=== PATIENT | male | born 1950 | race Caucasian/White ===

== ENCOUNTER → 2016-11-23 | Outpatient (CLI) | payer MEDICARE, OTHER ==
[~2016-11-23] MED LIST: HYDROCORTISONE SUCCINATE 100 MG/2 ML VIAL IV ONE; SODIUM CHLORIDE 0.9% 250 ML in EMPTY BAG 1 BAG IV PRN; SODIUM CHLORIDE 0.9% 500 ML in EMPTY BAG 1 BAG IV PRN; diphenhydrAMINE 50 MG/ML 1 ML VIAL IVP ONE
[2016-11-23 12:21] VITALS: TEMP 97.8
[2016-11-23 13:44] VITALS: BP 112/75; PULSE 58; RESP 18
== END | disposition home or self-care (01) ==
LOC: PROCWHC3 11:52
PROVIDERS: ATTEND Internal Medicine Gastroenterology
DX: K51.90 Ulcerative colitis, unspecified, without complications (principal)
CPT/HCPCS: 96361; 96413; 96415; J1200; J1720; J1745; 96375

== ENCOUNTER → 2017-01-18 | Outpatient (CLI) | payer MEDICARE, OTHER ==
[2017-01-18 12:34] VITALS: TEMP 98.1
[2017-01-18 13:55] VITALS: RESP 20
[2017-01-18 14:13] VITALS: BP 124/81; PULSE 62
== END | disposition home or self-care (01) ==
LOC: PROCWHC3 11:58
PROVIDERS: ATTEND Internal Medicine Gastroenterology
DX: K51.90 Ulcerative colitis, unspecified, without complications (principal)
CPT/HCPCS: 96361; 96375; 96413; 96415; J1200; J1720; J1745

== ENCOUNTER → 2017-03-15 | Outpatient (CLI) | payer MEDICARE, OTHER ==
[~2017-03-15] MED LIST changes: +ACETAMINOPHEN TAB 500 MG TAB PO ONE; +LORATADINE 10 MG TAB PO ONE
[2017-03-15 12:33] VITALS: TEMP 97.7
[2017-03-15 14:08] VITALS: BP 121/76; PULSE 62; RESP 20
== END | disposition home or self-care (01) ==
LOC: PROCWHC3 12:02
PROVIDERS: ATTEND Internal Medicine Gastroenterology
DX: K51.318 Ulcerative (chronic) rectosigmoiditis with other complication (principal)
CPT/HCPCS: 96375; 96413; 96415; J1200; J1720; J1745

== ENCOUNTER → 2017-05-10 | Outpatient (CLI) | payer MEDICARE, OTHER ==
[~2017-05-10] MED LIST changes: +ACETAMINOPHEN TAB 500 MG TAB PO NR; -ACETAMINOPHEN TAB 500 MG TAB PO ONE; +HYDROCORTISONE SUCCINATE 100 MG/2 ML VIAL IV NR; -HYDROCORTISONE SUCCINATE 100 MG/2 ML VIAL IV ONE; +LORATADINE 10 MG TAB PO NR; -LORATADINE 10 MG TAB PO ONE; +diphenhydrAMINE 50 MG/ML 1 ML VIAL IVP NR; -diphenhydrAMINE 50 MG/ML 1 ML VIAL IVP ONE
[2017-05-10 12:08] VITALS: TEMP 98.2
[2017-05-10 12:42] LABS: Basophils % (A) 1 %; CH 30.4; CHCM 33.6; Eosinophils # (A) 0.2 k/uL (0-0.7); Eosinophils % (A) 3 %; HCT 45.1 % (39.0-53.0); HDW 2.59; HGB 15.5 gm/dL (13.0-17.5); Luc # (Auto) 0.13; Luc % (Auto) 2; Lymphocytes # (A) 1.5 k/uL (1.0-4.8); Lymphocytes % (A) 26 %; MCH 31.2 pg (25.0-35.0); MCHC 34.3 g/dL (31.0-37.0); MCV 90.9 fL (80.0-100.0); Mean Platelet Volume 7.2; Monocytes # (A) 0.4 k/uL (0-1.0); Monocytes % (A) 7 %; Neutrophils # (A) 3.4 k/uL (1.3-7.7); Neutrophils % (A) 61 %; RBC 4.96 m/uL (4.30-5.90); RDW 12.2 % (11.5-15.5); WBC 5.6 k/uL (3.8-10.6); WBC (Perox) 5.79
[2017-05-10 12:51] LABS: ALT 44 U/L (21-72); AST 37 U/L (17-59); Alkaline Phosphatase 42 U/L (38-126); Anion Gap 10 mmol/L; Blood Urea Nitrogen 13 mg/dL (9-20); Calcium 8.8 mg/dL (8.4-10.2); Carbon Dioxide 25 mmol/L (22-30); Chloride 106 mmol/L (98-107); Glucose 130 mg/dL (74-99); Non-African American GFR(MDRD) >60 (>60 ml/min/1.73 sqM); Potassium 4.6 mmol/L (3.5-5.1); Sodium 141 mmol/L (137-145); Total Bilirubin 0.8 mg/dL (0.2-1.3); Total Protein 7.8 g/dL (6.3-8.2)
[2017-05-10 12:55] VITALS: RESP 18
[2017-05-10 13:39] VITALS: BP 119/63; PULSE 62
== END ==
LOC: PROCWHC3 11:58
PROVIDERS: ATTEND Physician Assistant
DX: Z51.11 Encounter for antineoplastic chemotherapy (principal); K51.318 Ulcerative (chronic) rectosigmoiditis with other complication
CPT/HCPCS: 80053; 85025; 96375; 96413; 96415; 36415; J1720; J1745

== ENCOUNTER → 2017-06-19 | Outpatient (CLI) | payer MEDICARE, OTHER ==
[2017-06-19 13:48] LABS: Cholesterol 179 mg/dL (<200); Glucose 99 mg/dL (74-99); HDL Cholesterol 48 mg/dL (40-60)
[2017-06-19 14:35] LABS: Prostate Specific Antigen 0.48 ng/mL (0.00-4.00)
[2017-06-19 14:36] LABS: Hepatitis C Virus IgG Ab Negative (Negative); Hepatitis C Virus IgG Index 0.08
== END | disposition home or self-care (01) ==
LOC: LABWHC1 12:55
PROVIDERS: ATTEND Internal Medicine
DX: Z00.01 Encounter for general adult medical examination with abnormal findings (principal); E55.9 Vitamin D deficiency, unspecified; Z12.5 Encounter for screening for malignant neoplasm of prostate
CPT/HCPCS: 36415; 80061; 82306; 82947; 84153; 86803

== ENCOUNTER → 2017-06-28 | Outpatient (CLI) | payer MEDICARE, OTHER ==
--- NOTE | 2017-06-28 07:29 | US ---
EXAMINATION TYPE: US duplex aorta DATE OF EXAM: 06/28/2017 COMPARISON: CT 2012 CLINICAL HISTORY: Z13.6 screening for cardiovascular disorders. EXAM MEASUREMENTS: Abdominal Aorta: Proximal: 2.4 x 2.4 cm Mid: 1.9 x 2.3 cm Distal: 1.8 x 1.7 cm Bifurcation: right 1.1 x 1.2 cm left 1.0 x 0.9 cm normal caliber aorta IMPRESSION: No for sonographic evidence of abdominal aortic aneurysm.
== END | disposition home or self-care (01) ==
LOC: RADUSWWP 06:56
PROVIDERS: ATTEND Internal Medicine
DX: Z13.6 Encounter for screening for cardiovascular disorders (principal)
CPT/HCPCS: 93979

== ENCOUNTER → 2017-07-05 | Outpatient (CLI) | payer MEDICARE, OTHER ==
[~2017-07-05] MED LIST changes: -ACETAMINOPHEN TAB 500 MG TAB PO NR; +ACETAMINOPHEN TAB 500 MG TAB PO ONE; -HYDROCORTISONE SUCCINATE 100 MG/2 ML VIAL IV NR; +HYDROCORTISONE SUCCINATE 100 MG/2 ML VIAL IV ONE; +INFLIXIMAB-DYYB 400 MG in SODIUM CHLORIDE 0.9% 250 ML IV ONE; -LORATADINE 10 MG TAB PO NR; +LORATADINE 10 MG TAB PO ONE; -SODIUM CHLORIDE 0.9% 250 ML in EMPTY BAG 1 BAG IV PRN; -diphenhydrAMINE 50 MG/ML 1 ML VIAL IVP NR; +diphenhydrAMINE 50 MG/ML 1 ML VIAL IVP ONE
[2017-07-05 12:23] VITALS: TEMP 97.5
[2017-07-05 13:38] VITALS: RESP 18
[2017-07-05 14:07] VITALS: BP 119/71; PULSE 69
== END ==
LOC: PROCWHC3 12:01
PROVIDERS: ATTEND Physician Assistant
DX: Z51.11 Encounter for antineoplastic chemotherapy (principal); K51.318 Ulcerative (chronic) rectosigmoiditis with other complication
CPT/HCPCS: 96375; 96413; 96415; J1200; J1720; Q5102

== ENCOUNTER 2017-07-07 07:57 | Day surgery (SDC) | payer MEDICARE, OTHER ==
[2017-07-06 08:48] VITALS: BMI 27.3
[~2017-07-07 07:57] MED LIST changes: -ACETAMINOPHEN TAB 500 MG TAB PO ONE; -HYDROCORTISONE SUCCINATE 100 MG/2 ML VIAL IV ONE; -INFLIXIMAB-DYYB 400 MG in SODIUM CHLORIDE 0.9% 250 ML IV ONE; +LACTATED RINGERS 1,000 ML IV SCH; -LORATADINE 10 MG TAB PO ONE; -SODIUM CHLORIDE 0.9% 500 ML in EMPTY BAG 1 BAG IV PRN; -diphenhydrAMINE 50 MG/ML 1 ML VIAL IVP ONE
[2017-07-07 08:26] VITALS: RESP 16; TEMP 97.6
[2017-07-07] MEDS ORDERED: LIDOCAINE 1% 20 ML VIAL (10MG/ML) FOR IV START INTRADERMA ONE (08:34)
[2017-07-07] MEDS ORDERED: PROPOFOL 10 MG/ML 20 ML VIAL IV ONE (09:09)
--- NOTE | 2017-07-07 09:33 | P.PCN ---
Date of Procedure: 07/07/17 Preoperative Diagnosis: Postoperative Diagnosis: Procedure(s) Performed: Brief history: Patient is a pleasant 67-year-old white male scheduled for an elective upper endoscopy as well as colonoscopy as a part of evaluation of epigastric pain for the last 2 months duration and long-standing history of ulcerative colitis. Procedure performed: Esophagogastroduodenoscopy and biopsy Colonoscopy with biopsy and snare polypectomy Preoperative diagnosis: Epigastric pain of 2 months duration Long-standing history of ulcerative colitis Anesthesia: MAC Procedure: After informed consent was obtained from the patient was brought into the endoscopy unit and IV sedation was administered by anesthesia under continuous monitoring. Initially upper endoscopy was done. The Olympus GF 160 video endoscope was inserted inserted into the mouth and esophagus intubated without any difficulty and was gradually advanced into the stomach and duodenum and carefully examined. The bulb and second part of the duodenum appeared normal. The scope was then withdrawn into the stomach adequately insufflated with air and upon careful examination the antrum and mild gastritis and biopsies were done from this area. The body, cardia and fundus appeared normal. The scope was then withdrawn into the esophagus. The GE junction was located at 40 cm to the incisors. It appeared regular with no erythema erosions or ulcerations. biopsies were done from the distal esophagus also. Rest of the esophagus appeared normal. Patient tolerated the procedure well. At this time the patient continued to remain sedation. Initial digital rectal examination was normal. Olympus CF 160 video colonoscope was then inserted into the rectum and gradually advanced to the cecum without any difficulty. Careful examination was performed as the scope was gradually being withdrawn. The prep was excellent. The cecum, ascending coloappeared normal. In the transverse colon there was a 1 cm polyp removed by snare polypectomy. The rest of the transverse colon, descending colon, sigmoid colon and rectum appeared normal. scattered sigmoid diverticula seen. Random biopsies were done from cecum to rectum at every 10 cm into well. Retroflexion was performed in the rectum and no lesions were noted. Patient tolerated the procedure well. Impression: 1. Upper endoscopy revealed mild antral gastritis but no evidence of esophagitis or peptic ulcer disease. 2. Colonoscopy revealed 1 cm transverse colon polyp status post snare polypectomy and sigmoid diverticulosis. No active colitis Recommendations: Findings of this examination were discussed with the patient as well as his family. He was advised to follow with the biopsy results. If the biopsy does not show any evidence of dysplasia he can have a repeat colonoscopy in 2 years. Implants: Indications for Procedure: Operative Findings: Description of Procedure:
[2017-07-07 10:00] VITALS: BP 123/80; PULSE 53
== END 2017-07-07 10:50 | disposition home or self-care (01) ==
LOC: ORWHC2ENDO 07:57
PROVIDERS: ATTEND Internal Medicine Gastroenterology
DX: K51.90 Ulcerative colitis, unspecified, without complications (principal); K57.30 Diverticulosis of large intestine without perforation or abscess without bleeding; K29.50 Unspecified chronic gastritis without bleeding; D12.3 Benign neoplasm of transverse colon; R10.13 Epigastric pain; J45.909 Unspecified asthma, uncomplicated; K21.9 Gastro-esophageal reflux disease without esophagitis; F39 Unspecified mood [affective] disorder; Z88.1 Allergy status to other antibiotic agents; Z88.0 Allergy status to penicillin; Z88.7 Allergy status to serum and vaccine; Z79.899 Other long term (current) drug therapy; Z79.1 Long term (current) use of non-steroidal anti-inflammatories (NSAID); Z79.51 Long term (current) use of inhaled steroids
CPT/HCPCS: 88305; 88342; 45380; 45385; 43239; J2704

== ENCOUNTER → 2017-10-25 | Outpatient (CLI) | payer MEDICARE, OTHER ==
[~2017-10-25] MED LIST changes: +ACETAMINOPHEN TAB 500 MG TAB PO ONE; +HYDROCORTISONE SUCCINATE 100 MG/2 ML VIAL IV ONE; +INFLIXIMAB-DYYB 400 MG in SODIUM CHLORIDE 0.9% 250 ML IV ONE; -LACTATED RINGERS 1,000 ML IV SCH; +LORATADINE 10 MG TAB PO ONE; +SODIUM CHLORIDE 0.9% 500 ML in EMPTY BAG 1 BAG IV PRN; +diphenhydrAMINE 50 MG/ML 1 ML VIAL IVP ONE
[2017-10-25 12:44] VITALS: TEMP 98.6
[2017-10-25 13:03] LABS: Basophils # (A) 0.1 k/uL (0-0.2); Basophils % (A) 1 %; CH 30.9; CHCM 33.9; Eosinophils # (A) 0.2 k/uL (0-0.7); Eosinophils % (A) 5 %; HCT 40.3 % (39.0-53.0); HDW 2.61; HGB 13.1 gm/dL (13.0-17.5); Luc # (Auto) 0.17; Luc % (Auto) 3; Lymphocytes # (A) 1.5 k/uL (1.0-4.8); Lymphocytes % (A) 28 %; MCH 29.7 pg (25.0-35.0); MCHC 32.5 g/dL (31.0-37.0); MCV 91.4 fL (80.0-100.0); Monocytes # (A) 0.5 k/uL (0-1.0); Monocytes % (A) 10 %; Neutrophils # (A) 2.8 k/uL (1.3-7.7); Neutrophils % (A) 54 %; RBC 4.41 m/uL (4.30-5.90); RDW 12.6 % (11.5-15.5); WBC 5.3 k/uL (3.8-10.6); WBC (Perox) 5.26
[2017-10-25 13:15] LABS: Anion Gap 9 mmol/L; Calcium 9.3 mg/dL (8.4-10.2); Carbon Dioxide 27 mmol/L (22-30); Chloride 105 mmol/L (98-107); Glucose 92 mg/dL (74-99); Non-African American GFR(MDRD) >60 (>60 ml/min/1.73 sqM); Sodium 141 mmol/L (137-145); Total Bilirubin 0.6 mg/dL (0.2-1.3); Total Protein 7.8 g/dL (6.3-8.2)
[2017-10-25 13:17] LABS: ALT 53 U/L (21-72); AST 40 U/L (17-59); Alkaline Phosphatase 33 U/L (38-126); Blood Urea Nitrogen 19 mg/dL (9-20); Potassium 5.1 mmol/L (3.5-5.1)
[2017-10-25 14:19] VITALS: BP 113/70; PULSE 71; RESP 18
== END | disposition home or self-care (01) ==
LOC: PROCWHC3 12:04
PROVIDERS: ATTEND Physician Assistant
DX: K51.318 Ulcerative (chronic) rectosigmoiditis with other complication (principal)
CPT/HCPCS: 80053; 85025; 96375; 96413; 96415; 36415; J1200; J1720; Q5102

== ENCOUNTER → 2017-12-20 | Outpatient (CLI) | payer MEDICARE, OTHER ==
[~2017-12-20] MED LIST changes: +HYDROCORTISONE SUCCINATE 100 MG/2 ML VIAL IV NR; -HYDROCORTISONE SUCCINATE 100 MG/2 ML VIAL IV ONE; +diphenhydrAMINE 50 MG/ML 1 ML VIAL IVP NR; -diphenhydrAMINE 50 MG/ML 1 ML VIAL IVP ONE
[2017-12-20 12:28] VITALS: TEMP 98.6
[2017-12-20 13:42] VITALS: RESP 16
[2017-12-20 14:08] VITALS: BP 140/97; PULSE 87
== END | disposition home or self-care (01) ==
LOC: PROCWHC3 12:03
PROVIDERS: ATTEND Physician Assistant
DX: K51.318 Ulcerative (chronic) rectosigmoiditis with other complication (principal)
CPT/HCPCS: 96375; 96413; 96415; J1200; J1720; Q5102

== ENCOUNTER → 2018-02-14 | Outpatient (CLI) | payer MEDICARE, OTHER ==
[~2018-02-14] MED LIST changes: -ACETAMINOPHEN TAB 500 MG TAB PO ONE; +INFLIXIMAB-DYYB 400 MG in SODIUM CHLORIDE 0.9% 250 ML IV NR; -INFLIXIMAB-DYYB 400 MG in SODIUM CHLORIDE 0.9% 250 ML IV ONE; -LORATADINE 10 MG TAB PO ONE; +OMALIZUMAB 150 MG VIAL SQ ONE
[2018-02-14 12:23] VITALS: RESP 16; TEMP 98
[2018-02-14 14:25] VITALS: BP 118/78; PULSE 57
== END | disposition home or self-care (01) ==
LOC: PROCWHC3 02-13 13:34
PROVIDERS: ATTEND Physician Assistant
DX: K51.318 Ulcerative (chronic) rectosigmoiditis with other complication (principal)
CPT/HCPCS: 96375; 96413; 96415; J1200; J1720; Q5103

== ENCOUNTER → 2018-04-11 | Outpatient (CLI) | payer MEDICARE, OTHER ==
[~2018-04-11] MED LIST changes: +ACETAMINOPHEN TAB 500 MG TAB PO NR; +LORATADINE 10 MG TAB PO NR; -OMALIZUMAB 150 MG VIAL SQ ONE
[2018-04-11 12:27] VITALS: RESP 16; TEMP 98.5
[2018-04-11 14:02] VITALS: BP 104/65; PULSE 54
== END ==
LOC: PROCWHC3 12:01
PROVIDERS: ATTEND Physician Assistant
DX: K51.318 Ulcerative (chronic) rectosigmoiditis with other complication (principal)
CPT/HCPCS: 96375; 96413; 96415; J1200; J1720; Q5103

== ENCOUNTER → 2018-06-06 | Outpatient (CLI) | payer MEDICARE, OTHER ==
[~2018-06-06] MED LIST changes: -ACETAMINOPHEN TAB 500 MG TAB PO NR; -HYDROCORTISONE SUCCINATE 100 MG/2 ML VIAL IV NR; +HYDROCORTISONE SUCCINATE 100 MG/2 ML VIAL IVP ONE; -LORATADINE 10 MG TAB PO NR; -diphenhydrAMINE 50 MG/ML 1 ML VIAL IVP NR; +diphenhydrAMINE 50 MG/ML 1 ML VIAL IVP ONE
[2018-06-06 12:18] VITALS: RESP 15; TEMP 98.1
[2018-06-06 13:56] VITALS: BP 125/81; PULSE 77
== END | disposition home or self-care (01) ==
LOC: PROCWHC3 11:58
PROVIDERS: ATTEND Physician Assistant
DX: K51.318 Ulcerative (chronic) rectosigmoiditis with other complication (principal)
CPT/HCPCS: 96375; 96413; 96415; J1200; J1720; Q5103

== ENCOUNTER → 2018-08-01 | Outpatient (CLI) | payer MEDICARE, OTHER ==
[~2018-08-01] MED LIST changes: +HYDROCORTISONE SUCCINATE 100 MG/2 ML VIAL IV ONE; -HYDROCORTISONE SUCCINATE 100 MG/2 ML VIAL IVP ONE
[2018-08-01 13:05] VITALS: TEMP 98.3
[2018-08-01 13:59] LABS: HCT 42.4 % (39.0-53.0); HGB 14.5 gm/dL (13.0-17.5); MCH 31.2 pg (25.0-35.0); MCHC 34.3 g/dL (31.0-37.0); MCV 90.9 fL (80.0-100.0); Mean Platelet Volume 7.6; Platelet Count 251 k/uL (150-450); RBC 4.66 m/uL (4.30-5.90); RDW 12.5 % (11.5-15.5); WBC 6.4 k/uL (3.8-10.6)
[2018-08-01 14:15] LABS: ALT 41 U/L (21-72); AST 37 U/L (17-59); Albumin 4.4 g/dL (3.5-5.0); Alkaline Phosphatase 31 U/L (38-126); Anion Gap 10 mmol/L; Blood Urea Nitrogen 19 mg/dL (9-20); Calcium 9.2 mg/dL (8.4-10.2); Carbon Dioxide 26 mmol/L (22-30); Chloride 107 mmol/L (98-107); Glucose 115 mg/dL (74-99); Sodium 143 mmol/L (137-145); Total Bilirubin 0.7 mg/dL (0.2-1.3); Total Protein 7.7 g/dL (6.3-8.2)
[2018-08-01 14:19] LABS: Potassium 4.9 mmol/L (3.5-5.1)
[2018-08-01 14:25] VITALS: RESP 15
[2018-08-01 14:56] VITALS: BP 117/80; PULSE 56
== END | disposition home or self-care (01) ==
LOC: PROCWHC3 12:37
PROVIDERS: ATTEND Physician Assistant
DX: K51.318 Ulcerative (chronic) rectosigmoiditis with other complication (principal)
CPT/HCPCS: 80053; 85027; 96375; 96413; 96415; 36415; J1200; J1720; Q5103

== ENCOUNTER → 2018-09-26 | Outpatient (CLI) | payer MEDICARE, OTHER ==
[~2018-09-26] MED LIST changes: -HYDROCORTISONE SUCCINATE 100 MG/2 ML VIAL IV ONE; +HYDROCORTISONE SUCCINATE 100 MG/2 ML VIAL IVP ONE; +SODIUM CHLORIDE 0.9% 500 ML 500 ML in EMPTY BAG 1 BAG IV PRN; -SODIUM CHLORIDE 0.9% 500 ML in EMPTY BAG 1 BAG IV PRN
[2018-09-26 13:42] VITALS: RESP 16; TEMP 98.3
[2018-09-26 14:35] VITALS: BP 130/77; PULSE 59
== END | disposition home or self-care (01) ==
LOC: PROCWHC3 12:42
PROVIDERS: ATTEND Physician Assistant
DX: K51.318 Ulcerative (chronic) rectosigmoiditis with other complication (principal)
CPT/HCPCS: 96372; 96413; 96415; J1200; J1720; J2357; Q5103

== ENCOUNTER → 2018-11-21 | Outpatient (CLI) | payer MEDICARE, OTHER ==
[~2018-11-21] MED LIST changes: +HYDROCORTISONE SUCCINATE 100 MG/2 ML VIAL IV ONE; -HYDROCORTISONE SUCCINATE 100 MG/2 ML VIAL IVP ONE; +diphenhydrAMINE 50 MG/ML 1 ML VIAL IVP NR; -diphenhydrAMINE 50 MG/ML 1 ML VIAL IVP ONE
[2018-11-21 11:04] VITALS: RESP 16; TEMP 97.9
[2018-11-21 13:09] VITALS: BP 121/75; PULSE 59
== END | disposition home or self-care (01) ==
LOC: PROCWHC3 10:31
PROVIDERS: ATTEND Internal Medicine Gastroenterology
DX: K51.90 Ulcerative colitis, unspecified, without complications (principal)
CPT/HCPCS: 96375; 96413; 96415; J1200; J1720; Q5103

== ENCOUNTER → 2018-12-17 | Outpatient (CLI) | payer MEDICARE, OTHER ==
--- NOTE | 2018-12-17 12:18 | XR ---
EXAMINATION TYPE: XR cervical spine w flex/ext DATE OF EXAM: 12/17/2018 COMPARISON: None HISTORY: Spondylolisthesis TECHNIQUE: 5 view cervical spine supplemented with flexion and extension views. FINDINGS: Prevertebral space is normal. Disc space narrowing is present C3-4, C5-6, C6-7. Anterior ve rtebral body spurring is present C5-C6. Some posterior vertebral body spurring may be present at C5. There is a minimal retrolisthesis C3 posterior on C4 estimated at approximately 0.3 mm. This appears to be preserved with flexion and extension views. Posterior spinal lamellar line appears intact. There is foraminal narrowing on the left and C5-6 C6-7. Some foraminal stenosis is present at C3-C4 o n the right. Tip of the odontoid is limited due to overlying maxilla. IMPRESSION: 1. Stable grade 1 spondylolisthesis of C3 3 posterior on C4. This maintains position in both flexion and extension as well as neutral position. 2. Degenerative disc changes discussed above. 3. Mild foraminal narrowing discussed above
== END | disposition home or self-care (01) ==
LOC: RADXRMAIN 11:22
PROVIDERS: ATTEND Anesthesiology Pain Medicine
DX: M48.02 Spinal stenosis, cervical region (principal); M99.71 Connective tissue and disc stenosis of intervertebral foramina of cervical region; M43.12 Spondylolisthesis, cervical region; M47.812 Spondylosis without myelopathy or radiculopathy, cervical region
CPT/HCPCS: 72052

== ENCOUNTER → 2019-01-11 | Outpatient (CLI) | payer MEDICARE, OTHER ==
--- NOTE | 2019-01-11 14:01 | MR ---
EXAMINATION TYPE: MR jennifer/lspine wo con DATE OF EXAM: 01/11/2019 COMPARISON: None available HISTORY: Cervical and lumbar back pain, spondylosis TECHNIQUE: Multiplanar, multisequence imaging of the lumbar spine is performed without IV contrast. FINDINGS: Cervical spine: There is mild retrolisthesis of C4 on C5. Vertebral body heights are maintained of th e cervical spine. C2-C3: There is a small broad-based disc bulge without spinal canal stenosis nor neural foraminal ady rowing. C3-C4: There is a broad-based disc bulge, uncovertebral hypertrophy and facet arthropathy creating se harshad right and moderate left neural foraminal narrowing as well as mild spinal canal stenosis. C4-C5: There is a small central posterior disc osteophyte complex, uncovertebral hypertrophy and face t arthropathy creating mild right and moderate left neural foraminal narrowing. There is some narrowi ng of the ventral subarachnoid space without spinal canal stenosis. C5-C6: There is a left eccentric large broad-based disc bulge creating severe left neural foraminal n arrowing and mild spinal canal stenosis with mild right neuroforaminal narrowing. C6-C7: There is uncovertebral hypertrophy and facet arthropathy creating moderate to severe left neur al foraminal narrowing and mild to moderate right neural foraminal narrowing. There is also a central disc herniation at this level minimally narrowing the ventral subarachnoid space creating minimal sp inal canal stenosis. C7-T1: No significant disc disease, spinal canal stenosis nor neural foraminal narrowing. Lumbar spine: The vertebral bodies maintain normal vertebral body height and alignment. Bone marrow s ignal is within normal limits. Multilevel disc desiccation is seen. Conus medullaris is within normal limits. L1-L2: Mild disc desiccation without spinal canal stenosis or neuroforaminal narrowing. L2-L3: There is a broad-based disc bulge resulting in minimal bilateral neural foraminal narrowing. N o spinal canal stenosis. L3-L4: There is a broad-based disc bulge and facet arthropathy resulting in mild bilateral neural for aminal narrowing without spinal canal stenosis. L4-L5: There is a large broad-based disc bulge creating moderate bilateral neural foraminal narrowing and mild spinal canal stenosis in combination with facet arthropathy and ligamentum flavum buckling. L5-S1: No significant disc disease, spinal canal stenosis nor neural foraminal narrowing. IMPRESSION: 1. Mild retrolisthesis of C4 on C5. Remainder of the vertebral body alignment of the cervical and lum bar spine are maintained. No vertebral body height loss. 2. Small central disc herniation at C6-C7 superimposed upon a broad-based disc bulge in combination w ith degenerative changes create moderate to severe left neural foraminal narrowing and moderate right neural foraminal narrowing with minimal spinal canal stenosis. 3. Degenerative disc disease at C3-C4 and L4-L5 creates mild spinal canal stenosis. 4. Moderate multilevel degenerative disc disease of the cervical and lumbar spine result in variable degrees of neural foraminal narrowing as described above.
== END | disposition home or self-care (01) ==
LOC: RADMRIMAIN 12:53
PROVIDERS: ATTEND Neurological Surgery
DX: M48.02 Spinal stenosis, cervical region (principal); M48.061 Spinal stenosis, lumbar region without neurogenic claudication; M43.12 Spondylolisthesis, cervical region; M50.223 Other cervical disc displacement at C6-C7 level; M50.31 Other cervical disc degeneration, high cervical region; M51.36 Other intervertebral disc degeneration, lumbar region; M47.812 Spondylosis without myelopathy or radiculopathy, cervical region
CPT/HCPCS: 72141; 72148

== ENCOUNTER → 2019-01-16 | Outpatient (CLI) | payer MEDICARE, OTHER ==
[~2019-01-16] MED LIST changes: -diphenhydrAMINE 50 MG/ML 1 ML VIAL IVP NR; +diphenhydrAMINE 50 MG/ML 1 ML VIAL IVP ONE
[2019-01-16 09:54] VITALS: RESP 16; TEMP 97.9
[2019-01-16 11:12] LABS: Basophils # (A) 0.1 k/uL (0-0.2); Basophils % (A) 1 %; Eosinophils # (A) 0.2 k/uL (0-0.7); Eosinophils % (A) 5 %; HGB 14.2 gm/dL (13.0-17.5); Lymphocytes # (A) 1.4 k/uL (1.0-4.8); Lymphocytes % (A) 31 %; MCHC 32.3 g/dL (31.0-37.0); MCV 92.8 fL (80.0-100.0); Mean Platelet Volume 7.9; Monocytes # (A) 0.4 k/uL (0-1.0); Monocytes % (A) 8 %; Neutrophils # (A) 2.3 k/uL (1.3-7.7); Neutrophils % (A) 51 %; Platelet Count 206 k/uL (150-450); RBC 4.74 m/uL (4.30-5.90); RDW 12.6 % (11.5-15.5); WBC 4.5 k/uL (3.8-10.6)
[2019-01-16 11:35] VITALS: BP 113/77; PULSE 71
[2019-01-16 12:01] LABS: ALT 39 U/L (21-72); AST 41 U/L (17-59); Albumin 4.3 g/dL (3.5-5.0); Alkaline Phosphatase 38 U/L (38-126); Anion Gap 11 mmol/L; Blood Urea Nitrogen 25 mg/dL (9-20); Calcium 9.2 mg/dL (8.4-10.2); Carbon Dioxide 20 mmol/L (22-30); Chloride 111 mmol/L (98-107); Glucose 115 mg/dL (74-99); Sodium 142 mmol/L (137-145); Total Bilirubin 0.7 mg/dL (0.2-1.3); Total Protein 7.4 g/dL (6.3-8.2)
[2019-01-16 12:17] LABS: Potassium 5.1 mmol/L (3.5-5.1)
== END | disposition home or self-care (01) ==
LOC: PROCWHC3 09:29
PROVIDERS: ATTEND Internal Medicine Gastroenterology
DX: K51.90 Ulcerative colitis, unspecified, without complications (principal)
CPT/HCPCS: 80053; 85025; 96375; 96413; 96415; 36415; J1200; J1720; Q5103

== ENCOUNTER → 2019-03-13 | Outpatient (CLI) | payer MEDICARE, OTHER ==
[~2019-03-13] MED LIST changes: +HYDROCORTISONE SUCCINATE 100 MG/2 ML VIAL IV NR; -HYDROCORTISONE SUCCINATE 100 MG/2 ML VIAL IV ONE; +diphenhydrAMINE 50 MG/ML 1 ML VIAL IVP NR; -diphenhydrAMINE 50 MG/ML 1 ML VIAL IVP ONE
[2019-03-13 10:49] VITALS: RESP 16; TEMP 98.1
[2019-03-13 11:29] VITALS: PULSE 69
[2019-03-13 12:20] VITALS: BP 133/83
== END | disposition home or self-care (01) ==
LOC: PROCWHC3 10:23
PROVIDERS: ATTEND Physician Assistant
DX: K51.90 Ulcerative colitis, unspecified, without complications (principal)
CPT/HCPCS: 96375; 96413; 96415; J1200; J1720; Q5103

== ENCOUNTER → 2019-05-08 | Outpatient (CLI) | payer MEDICARE, OTHER ==
[~2019-05-08] MED LIST changes: -HYDROCORTISONE SUCCINATE 100 MG/2 ML VIAL IV NR; +HYDROCORTISONE SUCCINATE 100 MG/2 ML VIAL IV ONE
[2019-05-08 11:12] VITALS: RESP 16; TEMP 97.8
[2019-05-08 12:39] VITALS: BP 118/74; PULSE 57
== END | disposition home or self-care (01) ==
LOC: PROCWHC3 10:45
PROVIDERS: ATTEND Physician Assistant
DX: K51.90 Ulcerative colitis, unspecified, without complications (principal)
CPT/HCPCS: 96375; 96413; 96415; J1200; J1720; Q5103

== ENCOUNTER → 2019-07-23 | Outpatient (CLI) | payer MEDICARE ==
[~2019-07-23] MED LIST changes: -HYDROCORTISONE SUCCINATE 100 MG/2 ML VIAL IV ONE; +HYDROCORTISONE SUCCINATE 100 MG/2 ML VIAL IV STA; -diphenhydrAMINE 50 MG/ML 1 ML VIAL IVP NR; +diphenhydrAMINE 50 MG/ML 1 ML VIAL IVP ONE
[2019-07-23 12:05] LABS: ALT 31 U/L (21-72); AST 30 U/L (17-59); African American GFR (CKD) >90 (>60 ml/min/1.73 sqM); Albumin 4.5 g/dL (3.5-5.0); Alkaline Phosphatase 41 U/L (38-126); Anion Gap 10 mmol/L; Blood Urea Nitrogen 18 mg/dL (9-20); Calcium 9.6 mg/dL (8.4-10.2); Carbon Dioxide 25 mmol/L (22-30); Chloride 108 mmol/L (98-107); Glucose 111 mg/dL (74-99); Potassium 4.5 mmol/L (3.5-5.1); Sodium 143 mmol/L (137-145); Total Bilirubin 0.4 mg/dL (0.2-1.3); Total Protein 7.9 g/dL (6.3-8.2)
[2019-07-23 12:20] VITALS: TEMP 98
[2019-07-23 12:28] LABS: Basophils # (A) 0.1 k/uL (0-0.2); Basophils % (A) 2 %; Eosinophils # (A) 0.2 k/uL (0-0.7); Eosinophils % (A) 5 %; HCT 41.2 % (39.0-53.0); Lymphocytes # (A) 1.3 k/uL (1.0-4.8); Lymphocytes % (A) 25 %; MCH 30.8 pg (25.0-35.0); MCV 90.7 fL (80.0-100.0); Mean Platelet Volume 8.4; Monocytes # (A) 0.3 k/uL (0-1.0); Monocytes % (A) 7 %; Neutrophils % (A) 59 %; Platelet Count 210 k/uL (150-450); RBC 4.55 m/uL (4.30-5.90); RDW 12.5 % (11.5-15.5); WBC 5.1 k/uL (3.8-10.6)
[2019-07-23 12:34] VITALS: RESP 16
[2019-07-23 13:03] VITALS: BP 122/76; PULSE 54
== END | disposition home or self-care (01) ==
LOC: PROCWHC3 10:54
PROVIDERS: ATTEND Physician Assistant
DX: K51.90 Ulcerative colitis, unspecified, without complications (principal)
CPT/HCPCS: 80053; 85025; 96375; 96413; 96415; J1200; J1720; Q5103

== ENCOUNTER → 2019-09-17 | Outpatient (CLI) | payer MEDICARE ==
[~2019-09-17] MED LIST changes: -HYDROCORTISONE SUCCINATE 100 MG/2 ML VIAL IV STA; +HYDROCORTISONE SUCCINATE 100 MG/2 ML VIAL IVP NR; +diphenhydrAMINE 50 MG/ML 1 ML VIAL IVP NR; -diphenhydrAMINE 50 MG/ML 1 ML VIAL IVP ONE
[2019-09-17 11:30] VITALS: RESP 16; TEMP 98.4
[2019-09-17 12:57] VITALS: BP 134/65; PULSE 56
== END | disposition home or self-care (01) ==
LOC: PROCWHC3 11:02
PROVIDERS: ATTEND Internal Medicine Gastroenterology
DX: K51.90 Ulcerative colitis, unspecified, without complications (principal)
CPT/HCPCS: 96375; 96413; 96415; J1200; J1720; Q5103

== ENCOUNTER → 2019-11-12 | Outpatient (CLI) | payer MEDICARE ==
--- NOTE | 2019-11-12 11:27 | XR ---
EXAMINATION TYPE: XR chest 2V DATE OF EXAM: 11/12/2019 COMPARISON: NONE HISTORY: Shortness of breath TECHNIQUE: Frontal and lateral views of the chest are obtained. FINDINGS: Scattered senescent parenchymal changes noted. Hyperinflation compatible with COPD. No evidence for infiltrate. No evidence for atelectasis. Heart size is stable. Mediastinal structures are stable and grossly unremarkable. No evidence for hilar prominence. Degenerative changes dorsal spine. IMPRESSION: 1. No evidence for acute pulmonary disease.
== END | disposition home or self-care (01) ==
LOC: RADXRMAIN 10:57
PROVIDERS: ATTEND Internal Medicine
DX: R07.89 Other chest pain (principal)
CPT/HCPCS: 71046

== ENCOUNTER → 2020-01-07 | Outpatient (CLI) | payer MEDICARE ==
[~2020-01-07] MED LIST changes: +HYDROCORTISONE SUCCINATE 100 MG/2 ML VIAL IV NR; -HYDROCORTISONE SUCCINATE 100 MG/2 ML VIAL IVP NR
[2020-01-07 11:48] VITALS: TEMP 98
[2020-01-07 12:47] LABS: ALT 66 U/L (4-49); AST 57 U/L (17-59); African American GFR (CKD) >90 (>60 ml/min/1.73 sqM); Albumin 4.8 g/dL (3.5-5.0); Alkaline Phosphatase 47 U/L (38-126); Anion Gap 9 mmol/L; Blood Urea Nitrogen 16 mg/dL (9-20); Calcium 8.5 mg/dL (8.4-10.2); Carbon Dioxide 26 mmol/L (22-30); Chloride 106 mmol/L (98-107); Glucose 109 mg/dL (74-99); Non-African American GFR(CKD) 88 (>60 ml/min/1.73 sqM); Sodium 141 mmol/L (137-145); Total Bilirubin 0.6 mg/dL (0.2-1.3); Total Protein 8.1 g/dL (6.3-8.2)
[2020-01-07 13:02] LABS: Potassium 4.5 mmol/L (3.5-5.1)
[2020-01-07 13:17] VITALS: BP 121/68; PULSE 69; RESP 18
== END ==
LOC: PROCWHC3 11:31
PROVIDERS: ATTEND Internal Medicine Gastroenterology
DX: K51.90 Ulcerative colitis, unspecified, without complications (principal)
CPT/HCPCS: 80053; 96375; 96413; 96415; 36415; J1200; J1720; Q5103

== ENCOUNTER → 2020-03-03 | Outpatient (CLI) | payer MEDICARE ==
[2020-03-03 11:49] VITALS: RESP 16; TEMP 98.2
[2020-03-03 12:05] LABS: Basophils # (A) 0.1 k/uL (0-0.2); Basophils % (A) 2 %; Eosinophils # (A) 0.3 k/uL (0-0.7); Eosinophils % (A) 5 %; HCT 44.2 % (39.0-53.0); HGB 14.5 gm/dL (13.0-17.5); Lymphocytes # (A) 1.7 k/uL (1.0-4.8); Lymphocytes % (A) 30 %; MCH 30.7 pg (25.0-35.0); MCHC 32.9 g/dL (31.0-37.0); MCV 93.5 fL (80.0-100.0); Mean Platelet Volume 8.6; Monocytes # (A) 0.5 k/uL (0-1.0); Monocytes % (A) 9 %; Neutrophils % (A) 52 %; Platelet Count 188 k/uL (150-450); RBC 4.73 m/uL (4.30-5.90); RDW 12.1 % (11.5-15.5); WBC 5.8 k/uL (3.8-10.6)
[2020-03-03 13:11] VITALS: BP 126/84; PULSE 56
== END | disposition home or self-care (01) ==
LOC: PROCWHC3 11:31
PROVIDERS: ATTEND Internal Medicine Gastroenterology
DX: K51.90 Ulcerative colitis, unspecified, without complications (principal)
CPT/HCPCS: 85025; 96375; 96413; 96415; 36415; J1200; J1720; Q5103

== ENCOUNTER → 2020-06-23 | Outpatient (CLI) | payer MEDICARE ==
[~2020-06-23] MED LIST changes: -HYDROCORTISONE SUCCINATE 100 MG/2 ML VIAL IV NR; +HYDROCORTISONE SUCCINATE 100 MG/2 ML VIAL IVP NR
[2020-06-23 11:19] VITALS: RESP 16; TEMP 98.5
[2020-06-23 12:53] VITALS: BP 116/79; PULSE 49
== END | disposition home or self-care (01) ==
LOC: PROCWHC3 11:03
PROVIDERS: ATTEND Internal Medicine Gastroenterology
DX: K51.90 Ulcerative colitis, unspecified, without complications (principal)
CPT/HCPCS: 96375; 96413; 96415; J1200; J1720; Q5103

== ENCOUNTER → 2020-08-18 | Outpatient (CLI) | payer MEDICARE ==
[~2020-08-18] MED LIST changes: +INFLIXIMAB-DYYB 400 MG in SODIUM CHLORIDE 0.9% 210 ML IV NR; -INFLIXIMAB-DYYB 400 MG in SODIUM CHLORIDE 0.9% 250 ML IV NR
[2020-08-18 11:14] VITALS: RESP 16; TEMP 98
[2020-08-18 14:19] VITALS: BP 123/81; PULSE 51
== END | disposition home or self-care (01) ==
LOC: PROCWHC3 11:03
PROVIDERS: ATTEND Internal Medicine Gastroenterology
DX: K51.90 Ulcerative colitis, unspecified, without complications (principal)
CPT/HCPCS: 96375; 96413; 96415; J1200; J1720; Q5103

== ENCOUNTER → 2020-10-13 | Outpatient (CLI) | payer MEDICARE ==
[~2020-10-13] MED LIST changes: -INFLIXIMAB-DYYB 400 MG in SODIUM CHLORIDE 0.9% 210 ML IV NR; +INFLIXIMAB-DYYB 400 MG in SODIUM CHLORIDE 0.9% 250 ML IV NR
[2020-10-13 12:44] VITALS: PULSE 64; RESP 16; TEMP 98.4
[2020-10-13 12:53] LABS: Basophils # (A) 0.1 k/uL (0-0.2); Basophils % (A) 1 %; Eosinophils # (A) 0.1 k/uL (0-0.7); Eosinophils % (A) 1 %; HCT 43.1 % (39.0-53.0); HGB 14.8 gm/dL (13.0-17.5); Lymphocytes # (A) 1.5 k/uL (1.0-4.8); Lymphocytes % (A) 11 %; MCH 31.4 pg (25.0-35.0); MCHC 34.5 g/dL (31.0-37.0); MCV 91.1 fL (80.0-100.0); Mean Platelet Volume 7.9; Monocytes # (A) 0.6 k/uL (0-1.0); Monocytes % (A) 4 %; Neutrophils # (A) 10.4 k/uL (1.3-7.7); Neutrophils % (A) 81 %; Platelet Count 252 k/uL (150-450); RBC 4.73 m/uL (4.30-5.90); RDW 12.3 % (11.5-15.5); WBC 12.8 k/uL (3.8-10.6)
[2020-10-13 13:54] VITALS: BP 134/81
== END | disposition home or self-care (01) ==
LOC: PROCWHC3 12:26
PROVIDERS: ATTEND Internal Medicine Gastroenterology
DX: K51.90 Ulcerative colitis, unspecified, without complications (principal)
CPT/HCPCS: 85025; 96375; 96413; 96415; 36415; J1200; J1720; Q5103

== ENCOUNTER → 2020-12-08 | Outpatient (CLI) | payer MEDICARE ==
[~2020-12-08] MED LIST changes: +HYDROCORTISONE SUCCINATE 100 MG/2 ML VIAL IV ONE; -HYDROCORTISONE SUCCINATE 100 MG/2 ML VIAL IVP NR; +INFLIXIMAB-DYYB 400 MG in SODIUM CHLORIDE 0.9% 210 ML IV NR; -INFLIXIMAB-DYYB 400 MG in SODIUM CHLORIDE 0.9% 250 ML IV NR; -diphenhydrAMINE 50 MG/ML 1 ML VIAL IVP NR; +diphenhydrAMINE 50 MG/ML 1 ML VIAL IVP ONE
[2020-12-08 12:58] VITALS: RESP 16; TEMP 97.8
[2020-12-08 13:10] LABS: Basophils # (A) 0.1 k/uL (0-0.2); Basophils % (A) 1 %; Eosinophils # (A) 0.2 k/uL (0-0.7); Eosinophils % (A) 4 %; HCT 44.7 % (39.0-53.0); HGB 14.9 gm/dL (13.0-17.5); Lymphocytes # (A) 1.6 k/uL (1.0-4.8); Lymphocytes % (A) 26 %; MCH 30.6 pg (25.0-35.0); MCHC 33.4 g/dL (31.0-37.0); MCV 91.7 fL (80.0-100.0); Mean Platelet Volume 8.2; Monocytes # (A) 0.5 k/uL (0-1.0); Monocytes % (A) 8 %; Neutrophils # (A) 3.7 k/uL (1.3-7.7); Neutrophils % (A) 59 %; Platelet Count 206 k/uL (150-450); RBC 4.88 m/uL (4.30-5.90); RDW 12.3 % (11.5-15.5); WBC 6.3 k/uL (3.8-10.6)
[2020-12-08 13:22] LABS: Albumin 4.7 g/dL (3.5-5.0); C Reactive Protein 8.1 mg/L (<10.0); Calcium 9.4 mg/dL (8.4-10.2); Potassium 4.6 mmol/L (3.5-5.1); Total Bilirubin 1.1 mg/dL (0.2-1.3); Total Protein 8.1 g/dL (6.3-8.2)
[2020-12-08 14:00] LABS: Erythrocyte Sedimentation Rate 9 mm/hr (0-15)
[2020-12-08 14:16] VITALS: BP 115/75; PULSE 59
== END | disposition home or self-care (01) ==
LOC: PROCWHC3 12:16
PROVIDERS: ATTEND Internal Medicine Gastroenterology
DX: K51.90 Ulcerative colitis, unspecified, without complications (principal)
CPT/HCPCS: 80053; 85652; 85025; 86140; 96375; 96413; 96415; 36415; J1200; J1720; Q5103

== ENCOUNTER 2021-01-21 12:29 | Emergency (ER) | payer MEDICARE ==
[2021-01-21 12:37] VITALS: RESP 18
--- NOTE | 2021-01-21 15:33 | XR ---
EXAMINATION TYPE: XR KUB DATE OF EXAM: 01/21/2021 COMPARISON: None INDICATION: Abdomen pain TECHNIQUE: Single view abdomen upright view FINDINGS: There is a normal bowel gas pattern. Fecal debris is in the colon. Psoas margins are normal. No organomegaly is present. Nonspecific small bowel gas is present. No free air is evident. No suspicious differential air-fluid levels are present. IMPRESSION: 1. Mild fecal retention
[2021-01-21 16:15] LABS: Basophils # (A) 0.1 k/uL (0-0.2); Basophils % (A) 1 %; Eosinophils # (A) 0.5 k/uL (0-0.7); Eosinophils % (A) 5 %; HCT 43.6 % (39.0-53.0); HGB 14.5 gm/dL (13.0-17.5); Lymphocytes # (A) 1.8 k/uL (1.0-4.8); Lymphocytes % (A) 20 %; MCHC 33.2 g/dL (31.0-37.0); MCV 90.2 fL (80.0-100.0); Monocytes # (A) 0.6 k/uL (0-1.0); Monocytes % (A) 7 %; Neutrophils # (A) 5.7 k/uL (1.3-7.7); Neutrophils % (A) 65 %; Platelet Count 263 k/uL (150-450); RBC 4.84 m/uL (4.30-5.90); RDW 12.5 % (11.5-15.5); WBC 8.8 k/uL (3.8-10.6)
[2021-01-21] MEDS ORDERED: methylPREDNISolone SOD SUCCI 125 MG/2 ML VIAL IV STA (16:20)
[2021-01-21] MEDS ORDERED: diphenhydrAMINE 50 MG/ML 1 ML VIAL IVP STA (16:20)
[2021-01-21] MEDS ORDERED: FAMOTIDINE 20 MG/2 ML VIAL IV STA (16:20)
[2021-01-21 16:24] LABS: ALT 27 U/L (4-49); AST 30 U/L (17-59); African American GFR (CKD) >90 (>60 ml/min/1.73 sqM); Albumin 4.5 g/dL (3.5-5.0); Alkaline Phosphatase 38 U/L (38-126); Anion Gap 9 mmol/L; Blood Urea Nitrogen 22 mg/dL (9-20); Carbon Dioxide 25 mmol/L (22-30); Chloride 107 mmol/L (98-107); Glucose 98 mg/dL (74-99); Non-African American GFR(CKD) 83 (>60 ml/min/1.73 sqM); Potassium 4.7 mmol/L (3.5-5.1); Sodium 141 mmol/L (137-145); Total Bilirubin 0.8 mg/dL (0.2-1.3)
[2021-01-21 16:33] LABS: Appearance,Urine Clear (Clear); Bilirubin,Urine Negative (Negative); Blood,Urine Negative (Negative); Color,Urine Yellow; Glucose,Urine (UA) Negative (Negative); Ketones,Urine Negative (Negative); Leukocyte Esterase,Urine Negative (Negative); Nitrite,Urine Negative (Negative); PH, Urine 5.5 (5.0-8.0); Protein,Urine Trace (Negative); Specific Gravity,Urine 1.027 (1.001-1.035); Urobilinogen,Urine <2.0 mg/dL (<2.0)
--- NOTE | 2021-01-21 16:34 | XR ---
EXAMINATION TYPE: XR chest 2V DATE OF EXAM: 01/21/2021 COMPARISON: 11/12/2019 HISTORY: Fever TECHNIQUE: 2 view chest FINDINGS: The heart size is normal. The pulmonary vasculature is normal. No suspicious infiltrates ar e evident. No significant interval change is evident. Osseous structures are unremarkable. IMPRESSION: 1. Normal 2 view chest
--- NOTE | 2021-01-21 18:19 | ED ---
Recheck HPI - General Chief Complaint: Recheck/Abnormal Lab/Rx Stated Complaint: Problem w Bowel Movement Time Seen by Provider: 01/21/21 14:26 Source: patient Mode of arrival: ambulatory Limitations: no limitations - History of Present Illness Initial Comments: 71-year-old male with hx of diverticulitis presenting to the emergency department today for chief complaint of small bowel movements and lower abdominal pain, chills, fevers. Patient states that he hasnt really had an appetite since Monday, he states he had diarrhea last and monday- and then it went to constipation. He states that he has had only small bowel movements since Monday. Patient did pass stool yesterday. Patient admits to a pain in the lower midline abdomen, he states he has also been running a fever on and off for the past few days, alongside chills. Denies cough, congestion, neck stiffness, bloody/dark stools, chest pain dyspnea. Patient has no additional complaints. upon arrival he had initial orders placed by Jay Chawla until room placement. - Related Data Home Medications Medication Instructions Recorded Confirmed LORazepam [Ativan] 1 mg PO HS 11/25/14 01/21/21 Omalizumab [Xolair] 375 mg SQ Q14D 11/25/14 01/21/21 Temazepam [Restoril] 30 mg PO HS 11/25/14 01/21/21 Albuterol Sulfate [Proair Hfa] 2 puff INHALATION RT-Q4H PRN 05/31/17 01/21/21 Pantoprazole Sodium [Protonix] 20 mg PO DAILY 09/17/19 01/21/21 Dicyclomine [Bentyl] 1 tab PO TID PRN 09/29/20 01/21/21 Fluticasone/Vilanterol [Breo 1 puff INHALATION RT-DAILY 01/21/21 01/21/21 Ellipta 200-25 Mcg INH] Infliximab-Dyyb [Inflectra] 400 mg IV Q56D 01/21/21 01/21/21 Previous Rx's Medication Instructions Recorded Sulfamethox-Tmp 800-160Mg [Bactrim 1 tab PO Q12HR 14 Days #28 tab 01/21/21 DS 800-160 mg] metroNIDAZOLE [Flagyl] 500 mg PO TID 14 Days #42 tab 01/21/21 Allergies Allergy/AdvReac Type Severity Reaction Status Date / Time azathioprine [From Imuran] Allergy Anaphylaxis Verified 01/21/21 15:32 azathioprine sodium Allergy Anaphylaxis Verified 01/21/21 15:32 [From Imuran] ciprofloxacin [From Cipro] Allergy Rash/Hives Verified 01/21/21 15:32 ciprofloxacin HCl Allergy Rash/Hives Verified 01/21/21 15:32 [From Cipro] Iodinated Contrast Media Allergy Unknown Unverified 01/21/21 16:26 mercaptopurine Allergy Anaphylaxis Verified 01/21/21 15:32 Penicillins Allergy Rash/Hives Verified 01/21/21 15:32 Review of Systems ROS Statement: Those systems with pertinent positive or pertinent negative responses have been documented in the HPI. ROS Other: All systems not noted in ROS Statement are negative. Past Medical History Past Medical History: Asthma, GERD/Reflux Additional Past Medical History / Comment(s): HX. PVC HX CONJUNCTIVITIS HX TROUBLE SLEEPING, ulcerative colitis. DIVERTICULITIS. History of Any Multi-Drug Resistant Organisms: None Reported Past Surgical History: Orthopedic Surgery Additional Past Surgical History / Comment(s): HX DENTAL IMPLANTS AUG 2014. RIGHT SHOULDER SURGERY. LEFT SHOULDEDR SURGERY. Past Anesthesia/Blood Transfusion Reactions: No Reported Reaction Past Psychological History: Anxiety, Depression Smoking Status: Former smoker Past Alcohol Use History: Occasional Past Drug Use History: None Reported - Past Family History Father Family Medical History: Cancer Additional Family Medical History / Comment(s): DAD-MESTHIOLOMA Mother Family Medical History: Congestive Heart Failure (CHF), Coronary Artery Disease (CAD) Sister(s) Family Medical History: Thyroid Disorder Additional Family Medical History / Comment(s): HX. STOMACH AILMENTSS-DOESN'T SEE A DOCTOR Daughter(s) Family Medical History: Thyroid Disorder Additional Family Medical History / Comment(s): GLUTEN INTOLERANCE AND ANXIETY Son(s) Family Medical History: Chest Pain / Angina Additional Family Medical History / Comment(s): ANXIETY, POSSIBLE CARDIAC HX - UNSURE IF HAD PR General Exam - General Exam Comments Initial Comments: General: The patient is awake and alert, in no distress Eye: Pupils are equal, round and reactive to light, extra-ocular movements are intact. No nystagmus. There is normal conjunctiva bilaterally. No signs of icterus. Ears, nose, mouth and throat: There are moist mucous membranes and no oral lesions. Gastrointestinal: Soft, non-distended, lower midline abdominal tenderness to palpation, without masses or organomegaly noted. There is no rebound or guarding present. Musculoskeletal: Normal ROM, no tenderness. Strength 5/5. Sensation intact. Radial and DP pulses equal bilaterally 2+. Neurological: A&O x 3. CN II-XII intact grossly, There are no obvious motor or sensory deficits. Coordination appears grossly intact. Speech is normal. Skin: Skin is warm and dry and no rashes or lesions are noted. Psychiatric: Cooperative, appropriate mood & affect, normal judgment. Limitations: no limitations Course Vital Signs 01/21/21 01/21/21 12:34 19:26 Temperature 98.2 F 98.0 F Pulse Rate 89 83 Respiratory 18 18 Rate Blood Pressure 160/96 146/85 O2 Sat by Pulse 96 97 Oximetry Medical Decision Making - Medical Decision Making Labs stable. Abdomen tender. Fever/chills hx. Small bowel movement. KUB no obstruction. CT moderate diverticulitis without complication. Patient will be treated orally and is to f/u wtih both PCP and GI. I discussed complication for worsening diverticulitis such as abscess and perforation--as well as return for worsening pain. Patient is agreeable to care plan and discharge. - Lab Data Result diagrams: 01/21/21 16:07 01/21/21 16:07 Lab Results 01/21/21 01/21/21 01/21/21 Range/Units 14:30 16:07 16:07 WBC 8.8 (3.8-10.6) k/uL RBC 4.84 (4.30-5.90) m/uL Hgb 14.5 (13.0-17.5) gm/dL Hct 43.6 (39.0-53.0) % MCV 90.2 (80.0-100.0) fL MCH 30.0 (25.0-35.0) pg MCHC 33.2 (31.0-37.0) g/dL RDW 12.5 (11.5-15.5) % Plt Count 263 (150-450) k/uL MPV 8.0 Neutrophils % 65 % Lymphocytes % 20 % Monocytes % 7 % Eosinophils % 5 % Basophils % 1 % Neutrophils # 5.7 (1.3-7.7) k/uL Lymphocytes # 1.8 (1.0-4.8) k/uL Monocytes # 0.6 (0-1.0) k/uL Eosinophils # 0.5 (0-0.7) k/uL Basophils # 0.1 (0-0.2) k/uL Sodium 141 (137-145) mmol/L Potassium 4.7 (3.5-5.1) mmol/L Chloride 107 (98-107) mmol/L Carbon Dioxide 25 (22-30) mmol/L Anion Gap 9 mmol/L BUN 22 H (9-20) mg/dL Creatinine 0.93 (0.66-1.25) mg/dL Est GFR (CKD-EPI)AfAm >90 (>60 ml/min/1.73 sqM) Est GFR (CKD-EPI)NonAf 83 (>60 ml/min/1.73 sqM) Glucose 98 (74-99) mg/dL Calcium 9.0 (8.4-10.2) mg/dL Total Bilirubin 0.8 (0.2-1.3) mg/dL AST 30 (17-59) U/L ALT 27 (4-49) U/L Alkaline Phosphatase 38 (38-126) U/L Total Protein 8.0 (6.3-8.2) g/dL Albumin 4.5 (3.5-5.0) g/dL Urine Color Urine Appearance (Clear) Urine pH (5.0-8.0) Ur Specific [place] (1.001-1.035) Urine Protein (Negative) Urine Glucose (UA) (Negative) Urine Ketones (Negative) Urine Blood (Negative) Urine Nitrite (Negative) Urine Bilirubin (Negative) Urine Urobilinogen (<2.0) mg/dL Ur Leukocyte Esterase (Negative) Coronavirus (PCR) Not Detected (Not Detectd) 01/21/21 Range/Units 16:17 WBC (3.8-10.6) k/uL RBC (4.30-5.90) m/uL Hgb (13.0-17.5) gm/dL Hct (39.0-53.0) % MCV (80.0-100.0) fL MCH (25.0-35.0) pg MCHC (31.0-37.0) g/dL RDW (11.5-15.5) % Plt Count (150-450) k/uL MPV Neutrophils % % Lymphocytes % % Monocytes % % Eosinophils % % Basophils % % Neutrophils # (1.3-7.7) k/uL Lymphocytes # (1.0-4.8) k/uL Monocytes # (0-1.0) k/uL Eosinophils # (0-0.7) k/uL Basophils # (0-0.2) k/uL Sodium (137-145) mmol/L Potassium (3.5-5.1) mmol/L Chloride (98-107) mmol/L Carbon Dioxide (22-30) mmol/L Anion Gap mmol/L BUN (9-20) mg/dL Creatinine (0.66-1.25) mg/dL Est GFR (CKD-EPI)AfAm (>60 ml/min/1.73 sqM) Est GFR (CKD-EPI)NonAf (>60 ml/min/1.73 sqM) Glucose (74-99) mg/dL Calcium (8.4-10.2) mg/dL Total Bilirubin (0.2-1.3) mg/dL AST (17-59) U/L ALT (4-49) U/L Alkaline Phosphatase (38-126) U/L Total Protein (6.3-8.2) g/dL Albumin (3.5-5.0) g/dL Urine Color Yellow Urine Appearance Clear (Clear) Urine pH 5.5 (5.0-8.0) Ur Specific [place] 1.027 (1.001-1.035) Urine Protein Trace H (Negative) Urine Glucose (UA) Negative (Negative) Urine Ketones Negative (Negative) Urine Blood Negative (Negative) Urine Nitrite Negative (Negative) Urine Bilirubin Negative (Negative) Urine Urobilinogen <2.0 (<2.0) mg/dL Ur Leukocyte Esterase Negative (Negative) Coronavirus (PCR) (Not Detectd) Disposition Clinical Impression: Diverticulitis, Fever, Abdominal pain Disposition: HOME SELF-CARE Condition: Good Instructions (If sedation given, give patient instructions): Diverticulitis (ED), Diverticulitis Diet (ED) Additional Instructions: Please use medication as discussed. Please follow-up with family doctor in the next 2 days. Please return to emergency room if the symptoms increase or worsen or for any other concerns. Prescriptions: Sulfamethox-Tmp 800-160Mg [Bactrim DS 800-160 mg] 1 tab PO Q12HR 14 Days #28 tab metroNIDAZOLE [Flagyl] 500 mg PO TID 14 Days #42 tab Is patient prescribed a controlled substance at d/c from ED?: No Referrals: Suresh Dukes MD [Primary Care Provider] - 1-2 days Amadou Castro MD [STAFF PHYSICIAN] - 1-2 days Time of Disposition: 18:16
--- NOTE | 2021-01-21 18:51 | CT ---
EXAMINATION TYPE: CT abdomen pelvis w con DATE OF EXAM: 01/21/2021 COMPARISON: 10/04/2013. HISTORY: Fever, abdominal pain, history of diverticulitis. CT DLP: 1098.6 mGycm Automated exposure control for dose reduction was used. TECHNIQUE: Helical acquisition of images was performed from the lung bases through the pelvis. CONTRAST: Performed without Oral Contrast and with IV Contrast, patient injected with 100 mL of Isovue 300. FINDINGS: LUNG BASES: No significant abnormality is appreciated. LIVER/GB: No acute abnormality is appreciated. Hepatic steatosis. PANCREAS: No significant abnormality is seen. SPLEEN: No significant abnormality is seen. ADRENALS: No significant abnormality is seen. KIDNEYS: 3.2 cm simple appearing left renal cyst in lower pole. Otherwise no significant abnormality is seen. FREE AIR: No free air is visualized. RETROPERITONEAL ADENOPATHY: None visualized REPRODUCTIVE ORGANS: No significant abnormality is seen URINARY BLADDER: No significant abnormality is seen. PELVIC ADENOPATHY: None visualized. OSSEOUS STRUCTURES: No significant abnormality is seen. BOWEL: Moderate fat stranding involving the sigmoid colonic diverticula. No bowel obstruction, free air or fluid.. OTHER: None IMPRESSION: FINDINGS OF ACUTE SIGMOID COLONIC DIVERTICULITIS WITH MODERATE INFLAMMATORY CHANGES AND WITHOUT COMPL ICATION.
[2021-01-21] MEDS ORDERED: metroNIDAZOLE 500 MG TAB PO STA (18:54)
[2021-01-21] MEDS ORDERED: SULFAMETH-TMP DS STARTER PACK 2 TAB BTL PO STA (18:54)
[2021-01-21 19:27] VITALS: BP 146/85; PULSE 83; TEMP 98
== END 2021-01-21 19:27 | disposition home or self-care (01) ==
LOC: EC 12:29
DX: K57.32 Diverticulitis of large intestine without perforation or abscess without bleeding (principal); J45.909 Unspecified asthma, uncomplicated; K21.9 Gastro-esophageal reflux disease without esophagitis; Z88.0 Allergy status to penicillin; F41.9 Anxiety disorder, unspecified; F32.9 Major depressive disorder, single episode, unspecified; Z87.891 Personal history of nicotine dependence; Z20.822 Contact with and (suspected) exposure to COVID-19
CPT/HCPCS: 36415; 80053; 85025; 81003; 87635; 71046; 74018; 74177; 99284; 96374; 96375; J1200; J2930; Q9967

== ENCOUNTER → 2021-02-19 | Outpatient (CLI) | payer MEDICARE ==
[~2021-02-19] MED LIST changes: +HYDROCORTISONE SUCCINATE 100 MG/2 ML VIAL IV NR; -HYDROCORTISONE SUCCINATE 100 MG/2 ML VIAL IV ONE; +diphenhydrAMINE 50 MG/ML 1 ML VIAL IVP NR; -diphenhydrAMINE 50 MG/ML 1 ML VIAL IVP ONE
[2021-02-19 11:21] VITALS: TEMP 98.5
[2021-02-19 12:21] VITALS: PULSE 50; RESP 16
[2021-02-19 12:53] VITALS: BP 127/82
== END ==
LOC: PROCWHC3 10:59
PROVIDERS: ATTEND Internal Medicine Gastroenterology
DX: K51.90 Ulcerative colitis, unspecified, without complications (principal)
CPT/HCPCS: 96375; 96413; 96415; J1200; J1720; Q5103

== ENCOUNTER → 2021-04-16 | Outpatient (CLI) | payer MEDICARE ==
[2021-04-16 10:18] VITALS: TEMP 98.5
[2021-04-16 11:35] VITALS: BP 115/75; PULSE 59; RESP 16
== END ==
LOC: PROCWHC3 09:57
PROVIDERS: ATTEND Internal Medicine Gastroenterology
DX: K51.90 Ulcerative colitis, unspecified, without complications (principal); Z88.0 Allergy status to penicillin; Z88.1 Allergy status to other antibiotic agents; Z91.041 Radiographic dye allergy status; Z87.891 Personal history of nicotine dependence
CPT/HCPCS: 96372; 96413; 96415; J1200; J1720; Q5103; 96375

== ENCOUNTER → 2021-06-11 | Outpatient (CLI) | payer MEDICARE ==
[2021-06-11 10:18] VITALS: TEMP 98.5
[2021-06-11 11:07] VITALS: RESP 16
[2021-06-11 11:51] VITALS: BP 130/82; PULSE 58
== END ==
LOC: PROCWHC3 09:58
PROVIDERS: ATTEND Internal Medicine Gastroenterology
DX: K51.90 Ulcerative colitis, unspecified, without complications (principal)
CPT/HCPCS: 96375; 96413; 96415; J1200; J1720; Q5103

== ENCOUNTER → 2021-08-06 | Outpatient (CLI) | payer MEDICARE ==
[~2021-08-06] MED LIST changes: -HYDROCORTISONE SUCCINATE 100 MG/2 ML VIAL IV NR; +HYDROCORTISONE SUCCINATE 100 MG/2 ML VIAL IV STA; -diphenhydrAMINE 50 MG/ML 1 ML VIAL IVP NR; +diphenhydrAMINE 50 MG/ML 1 ML VIAL IVP STA
[2021-08-06 10:35] VITALS: RESP 16; TEMP 97.9
[2021-08-06 11:06] LABS: HCT 45.9 % (39.0-53.0); HGB 15.4 gm/dL (13.0-17.5); MCH 31.4 pg (25.0-35.0); MCHC 33.7 g/dL (31.0-37.0); MCV 93.2 fL (80.0-100.0); Mean Platelet Volume 9.3; Platelet Count 227 k/uL (150-450); RBC 4.92 m/uL (4.30-5.90); RDW 12.3 % (11.5-15.5); WBC 6.8 k/uL (3.8-10.6)
[2021-08-06 11:48] LABS: Albumin 4.3 g/dL (3.5-5.0); Potassium 4.3 mmol/L (3.5-5.1); Total Bilirubin 0.6 mg/dL (0.2-1.3); Total Protein 7.6 g/dL (6.3-8.2)
[2021-08-06 12:08] VITALS: BP 120/81; PULSE 54
== END ==
LOC: PROCWHC3 09:53
PROVIDERS: ATTEND Internal Medicine Gastroenterology
DX: K51.90 Ulcerative colitis, unspecified, without complications (principal); Z88.1 Allergy status to other antibiotic agents; Z88.0 Allergy status to penicillin; Z91.041 Radiographic dye allergy status; Z87.891 Personal history of nicotine dependence
CPT/HCPCS: 80053; 85027; 96375; 96413; 96415; J1200; J1720; Q5103

== ENCOUNTER → 2021-08-06 | Outpatient (CLI) | payer MEDICARE ==
--- NOTE | 2021-08-07 04:40 | MR ---
EXAMINATION TYPE: MR cervical spine wo con DATE OF EXAM: 08/06/2021 COMPARISON: 01/11/2019 HISTORY: Chronic neck pain. Cervical vertebra have normal alignment. There is mild disc space narrowing at C3-4 and C5-C6 and C6- 7. There are small posterior disc bulging at C3-4. There are small posterior disc bulging also at C5- 6 and C6-7. Spinal canal measures 7 mm at C3-4 which is the narrowest point. Cervical spinal cord julia ws no edema. Brainstem is intact. There is no compression fracture. Spinal canal measures 8 mm at C5-6 and C6-7. There is no cervical paraspinal mass. IMPRESSION: Spondylotic changes as above. Mild relative spinal stenosis of 7 mm at C3-C4 level. No significant ch nav compared to old exam.
== END | disposition home or self-care (01) ==
LOC: RADMRIMAIN 19:57
PROVIDERS: ATTEND Orthopaedic Surgery
DX: M50.223 Other cervical disc displacement at C6-C7 level (principal); M48.02 Spinal stenosis, cervical region; M47.812 Spondylosis without myelopathy or radiculopathy, cervical region
CPT/HCPCS: 72141

== ENCOUNTER → 2021-10-01 | Outpatient (CLI) | payer MEDICARE ==
[~2021-10-01] MED LIST changes: +HYDROCORTISONE SUCCINATE 100 MG/2 ML VIAL IV NR; -HYDROCORTISONE SUCCINATE 100 MG/2 ML VIAL IV STA; -INFLIXIMAB-DYYB 400 MG in SODIUM CHLORIDE 0.9% 210 ML IV NR; +diphenhydrAMINE 50 MG/ML 1 ML VIAL IVP NR; -diphenhydrAMINE 50 MG/ML 1 ML VIAL IVP STA
[2021-10-01 10:40] VITALS: TEMP 97
[2021-10-01] MEDS: INFLIXIMAB-DYYB 400 MG in SODIUM CHLORIDE 0.9% 250 ML IV NR ×2 (10:41→11:13)
[2021-10-01 12:17] VITALS: BP 138/85; PULSE 53; RESP 16
== END ==
LOC: PROCWHC3 10:03
PROVIDERS: ATTEND Internal Medicine Gastroenterology
DX: K51.90 Ulcerative colitis, unspecified, without complications (principal); Z87.891 Personal history of nicotine dependence; Z88.0 Allergy status to penicillin; Z88.1 Allergy status to other antibiotic agents; Z91.041 Radiographic dye allergy status; Z88.8 Allergy status to other drugs, medicaments and biological substances
CPT/HCPCS: 96375; 96413; 96415; J1200; J1720; Q5103

== ENCOUNTER → 2021-11-26 | Outpatient (CLI) | payer MEDICARE ==
[~2021-11-26] MED LIST changes: +INFLIXIMAB-DYYB 400 MG in SODIUM CHLORIDE 0.9% 250 ML IV NR
[2021-11-26 11:40] VITALS: RESP 16; TEMP 98.4
[2021-11-26 12:48] VITALS: BP 128/83; PULSE 50
== END ==
LOC: PROCWHC3 10:53
PROVIDERS: ATTEND Internal Medicine Gastroenterology
DX: K51.90 Ulcerative colitis, unspecified, without complications (principal); Z88.0 Allergy status to penicillin; Z91.041 Radiographic dye allergy status; Z88.1 Allergy status to other antibiotic agents; Z88.8 Allergy status to other drugs, medicaments and biological substances; Z87.891 Personal history of nicotine dependence
CPT/HCPCS: 96375; 96413; 96415; J1720; Q5103

== ENCOUNTER → 2022-01-21 | Outpatient (CLI) | payer MEDICARE ==
[2022-01-21 11:24] VITALS: TEMP 98.5
[2022-01-21 13:01] VITALS: BP 128/79; PULSE 51; RESP 16
== END ==
LOC: PROCWHC3 10:53
PROVIDERS: ATTEND Internal Medicine Gastroenterology
DX: K51.90 Ulcerative colitis, unspecified, without complications (principal); Z88.0 Allergy status to penicillin; Z88.1 Allergy status to other antibiotic agents; Z91.041 Radiographic dye allergy status; Z88.8 Allergy status to other drugs, medicaments and biological substances; Z87.891 Personal history of nicotine dependence
CPT/HCPCS: 96375; 96413; 96415; J1720; Q5103

== ENCOUNTER → 2022-03-14 | Outpatient (CLI) | payer MEDICARE ==
[2022-03-14 14:38] LABS: Basophils # (A) 0.05 X 10*3/uL (0.00-0.10); Basophils % (A) 0.9 %; Eosinophils % (A) 3.6 %; HCT 44.8 % (39.6-50.0); HGB 14.5 g/dL (13.0-17.0); Immature Grans, Automated 0.4 %; Lymphocytes # (A) 2.16 X 10*3/uL (0.90-5.00); Lymphocytes % (A) 38.5 %; MCH 31.3 pg (27.0-32.0); MCHC 32.4 g/dL (32.0-37.0); MCV 96.6 fL (80.0-97.0); Mean Platelet Volume 11.7 fL (9.5-12.2); Monocytes # (A) 0.53 X 10*3/uL (0.20-1.00); Monocytes % (A) 9.4 %; NRBC Per 100 WBC 0 /100 WBCS (0.0-0.0); Neutrophils # (A) 2.65 X 10*3/uL (1.80-7.70); Neutrophils % (A) 47.2 %; Platelet Count 211 X 10*3/uL (140-440); RBC 4.64 X 10*6/uL (4.40-5.60); RDW 12.7 % (11.5-14.5); WBC 5.61 X 10*3/uL (4.50-10.00)
[2022-03-14 14:40] LABS: African American GFR (CKD) 77.3 (60.0-200.0); Albumin 4.5 g/dL (3.8-4.9); Albumin/Globulin Ratio 1.61 (1.60-3.17); Anion Gap 9.4 mmol/L (10.00-18.00); BUN/Creat Ratio 15.27 Ratio (12.00-20.00); Blood Urea Nitrogen 16.8 mg/dL (9.0-27.0); Calcium 8.7 mg/dL (8.7-10.3); Carbon Dioxide 25.6 mmol/L (20.0-27.5); Globulin 2.8 g/dL (1.6-3.3); Non-African American GFR(CKD) 66.7 (60.0-200.0); Potassium 4.2 mmol/L (3.5-5.5); Total Bilirubin 0.5 mg/dL (0.30-1.20); Total Protein 7.3 g/dL (6.2-8.2)
== END | disposition home or self-care (01) ==
LOC: LABWHC1 09:50
PROVIDERS: ATTEND Internal Medicine Gastroenterology
DX: K51.90 Ulcerative colitis, unspecified, without complications (principal)
CPT/HCPCS: 36415; 80053; 85025

== ENCOUNTER → 2022-04-11 | Outpatient (CLI) | payer MEDICARE ==
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
[2022-04-11 10:50] VITALS: BP 155/95; PULSE 59; RESP 18; TEMP 97.8
== END ==
LOC: PNWHC3 10:10
PROVIDERS: ATTEND Specialist
DX: M50.20 Other cervical disc displacement, unspecified cervical region (principal); M48.02 Spinal stenosis, cervical region; M47.812 Spondylosis without myelopathy or radiculopathy, cervical region; M19.90 Unspecified osteoarthritis, unspecified site; J45.909 Unspecified asthma, uncomplicated; F41.9 Anxiety disorder, unspecified; Z91.010 Allergy to peanuts; Z88.0 Allergy status to penicillin; Z91.041 Radiographic dye allergy status; Z88.1 Allergy status to other antibiotic agents; Z88.8 Allergy status to other drugs, medicaments and biological substances; Z87.891 Personal history of nicotine dependence
CPT/HCPCS: 99211

== ENCOUNTER 2022-05-03 12:41 | Day surgery (SDC) | payer MEDICARE ==
[2022-04-28 08:51] VITALS: BMI 28.0
[~2022-05-03 12:41] MED LIST changes: -HYDROCORTISONE SUCCINATE 100 MG/2 ML VIAL IV NR; -INFLIXIMAB-DYYB 400 MG in SODIUM CHLORIDE 0.9% 250 ML IV NR; +LACTATED RINGERS 1,000 ML IV SCH; -SODIUM CHLORIDE 0.9% 500 ML 500 ML in EMPTY BAG 1 BAG IV PRN; -diphenhydrAMINE 50 MG/ML 1 ML VIAL IVP NR
[2022-05-03 13:08] VITALS: TEMP 98.3
[2022-05-03] MEDS ORDERED: fentaNYL (PF) 50 MCG/ML 2 ML AMP ONE (13:19)
[2022-05-03] MEDS ORDERED: MIDAZOLAM 2 MG/2 ML VIAL ONE (13:19)
[2022-05-03] MEDS ORDERED: DEXAMETHASONE SOD PHOSPHATE 10 MG/ML 1 ML VIAL ONE (13:19)
--- NOTE | 2022-05-03 13:35 | P.PCN ---
Date of Procedure: 05/03/22 Surgeon: Bernabe Garibay Pathology: none sent Condition: stable Disposition: PACU Description of Procedure: PROCEDURE 1. Cervical epidural steroid injection under fluoroscopic guidance, C7-T1 Right paramedian approach. : PREOPERATIVE DIAGNOSIS: Cervical radiculopathy, cervical spondylosis without myelopathy POSTOPERATIVE DIAGNOSIS: : Same as above ANESTHESIA: Local anesthesia with 1% lidocaine and IV moderate conscious sedation with Versed and Fentanyl . EBL 0 PROCEDURE INDICATION: The patient with neck pain and radiculopathy unresponsive to conservative treatment consents for procedure. Patient is ALLERGIC to IV contrast dye PROCEDURE DESCRIPTION / TECHNIQUE: The patient was seen and identified in the preoperative area. Risks, benefits, complications, including but not limited to infections ,bleeding , allergic reactions to the medications ,and not complete pain relief, and alternatives were discussed with the patient, the patient a greed to proceed with the procedure and signed the consent. Patient was taken to the OR and time out was completed. The patient was placed in the prone position on the procedure table. A pillow was placed under the patients chest to increase the flexion of the cervical spine . The cervical area was prepped and draped in the usual sterile fashion. Vital signs were closely monitored during the procedure. Conscious sedation was used during the procedure to decrease patients anxiety. Using anterior-posterior fluoroscopy, the C7-T1 interlaminar space was identified and the skin over this site was marked and then infiltrated with 1% lidocaine subcutaneously. Subsequently, a 20-gauge 3-1/2-inch Tuohy epidural needle was inserted and advanced toward the epidural space by means of loss of resistance to air technique and guided by AP and lateral fluoroscopy. The needle tip contacted the lamina of T1 vertebra first, then it was walked off bone and into the epidural space using the loss of to air and fluoroscopic guidance to identify the epidural space. After negative aspiration for blood and CSF and in the absence of paresthesias. Again after negative aspiration, a 2 ml mixture containing 10 mg of Decadron and 1 ml of preservative free Normal Saline solution was injected . Needle was withdrawn intact, skin was cleansed, and bandages were applied. A copy of the needle placement picture was saved to the fluoroscopy machine.
[2022-05-03] MEDS ORDERED: IV FLUID CONTINUATION 850 ML IV ONE (13:38)
[2022-05-03 13:41] VITALS: PULSE 59; RESP 16
--- NOTE | 2022-05-03 14:01 | FL ---
Fluoroscopy History: PAIN 4 SEC FL
[2022-05-03 14:09] VITALS: BP 135/85
== END 2022-05-03 14:18 | disposition home or self-care (01) ==
LOC: ORPAIN 12:41
PROVIDERS: ATTEND Anesthesiology
DX: M47.22 Other spondylosis with radiculopathy, cervical region (principal); Z91.041 Radiographic dye allergy status; Z88.0 Allergy status to penicillin; Z88.3 Allergy status to other anti-infective agents; Z88.8 Allergy status to other drugs, medicaments and biological substances; Z79.899 Other long term (current) drug therapy; Z87.891 Personal history of nicotine dependence; Z82.49 Family history of ischemic heart disease and other diseases of the circulatory system; Z83.49 Family history of other endocrine, nutritional and metabolic diseases
CPT/HCPCS: 62321; J2250; J1100; J3010; 99152

== ENCOUNTER → 2022-05-13 | Outpatient (CLI) | payer MEDICARE ==
[~2022-05-13] MED LIST changes: +HYDROCORTISONE SUCCINATE 100 MG/2 ML VIAL IVP NR; +INFLIXIMAB-DYYB 400 MG in SODIUM CHLORIDE 0.9% 250 ML IV NR; -LACTATED RINGERS 1,000 ML IV SCH; +SODIUM CHLORIDE 0.9% 500 ML 500 ML in EMPTY BAG 1 BAG IV PRN; +diphenhydrAMINE 50 MG/ML 1 ML VIAL IVP NR
[2022-05-13 11:25] VITALS: RESP 16; TEMP 98
[2022-05-13 12:41] VITALS: BP 108/69; PULSE 58
== END ==
LOC: PROCWHC3 11:02
PROVIDERS: ATTEND Internal Medicine Gastroenterology
DX: K51.90 Ulcerative colitis, unspecified, without complications (principal); Z91.010 Allergy to peanuts; Z88.0 Allergy status to penicillin; Z88.1 Allergy status to other antibiotic agents; Z91.041 Radiographic dye allergy status; Z87.891 Personal history of nicotine dependence
CPT/HCPCS: 96375; 96413; 96415; J1720; Q5103

== ENCOUNTER → 2022-05-18 | Outpatient (CLI) | payer MEDICARE ==
[2022-05-18 11:32] VITALS: BP 159/92; PULSE 64; RESP 18; TEMP 98.8
--- NOTE | 2022-05-18 11:36 | P.PAINPG ---
PQRS Measure Charge Sheet Comment: A 72 yr old male with a history of severe and chronic low back pain secondary to lumbar degenerative disc diseases and lumbar spondylosis with facet arthropathy presents today for evaluation s/p R C7-T1 paramedian LUIS. Pt states he experienced 40% pain relief s/p procedure. Pain level is currently at 3/10 in intensity, dull/ achy shooting towards upper and lower neck. Pain is provoked by hyperextension and laying supine. Pain is alleviated with PT in Nov 2021 for 6 weeks, massage integrated with PT, chiropractic treatments monthly for 6 mo, ice, medications (Motrin, Flexeril), topicals, repositioning and rest. Has had no relief with acupuncture or facet blocks. Interventional pain procedures completed include R Paramedian ASAF C7-T1 x 1 Patient is currently on Motrin, Flexeril Patient denies any side effects of the medication(s), denies excessive drowsiness or sleepiness, denies suicidal ideation and reports that the current pain medication is helping to control the pain and improve activities of daily living. Patient denies any motor or sensory deficits. Patient denies any fever or night sweats, denies any change in the bowel movements or urination. Physical Examination: -Constitutional: Cooperative. Not in acute distress . - Neurologic: Cranial nerve II to XII intact. No focal neurological deficits. - Psychatric: Alert & oriented x 3. Matching mood & appropriate affect. Judgment and insight intact. - Musculoskeletal: Cervical spine: Muscle bulk/ tone/ strength in the bilateral upper extremities normal Vertebral body tenderness to palpation over C6 Spurling test positive on R Distraction test positive Facet loading test positive Thoracic spine Muscle bulk / tone/ strength in the bilateral paraspinal muscles normal Vertebral body tender to palpation over Facet loading test positive Lumbar spine: Motor bulk/ tone/ strength lower extremities , thigh and legs : 5/5 Deep tendon reflexes : Normal Knee Jerk. Normal Ankle Jerk . Vertebral body tenderness to palpation over Lumbar Facet Loading Test positive Straight Leg Raise: positive at 30 degrees right side/ left side Gaenslen's Test positive Sacral spine : Severe tenderness over the Sacroiliac joint: right side / left side Range of motion: Flexion of the lumbar spine <60 degrees Range of motion: Extension of the lumbar spine <20 degrees Gaenslen's Test positive Rudy's Test positive Ankita test: positive right side / left side Thigh Thrust Test Sacral Thrust Test Assessment and plan: Chronic low back pain secondary to lumbar degenerative disc disease , lumbar spondylosis with facet arthropathy without myelopathy Recommendation of R paramedian ASAF C5-C6. May need a series of injections, up to 3 within a 6 mo period, for optimal pain relief. Risks, benefits of procedure discussed and pt verbalized understanding. Denies anticoagulant use or medical history of diabetes. All patient questions answered MAPS reviewed and it was appropriate. I have spent less than 30 minutes on patient care today. Dr Yoder was available by phone for the evaluation of this patient. The time was used to review the medical records including relevant urine studies and Prescription history (MAPs), review of the available imaging, evaluation and examination of the patient, coordination of care with the medical staff and if applicable referring physicians, as well as creation of the medical record PQRS Narrative: Smoking Status Former smoker Hx Alcohol Use (MH) No Home Medications: Ambulatory Orders LORazepam [Ativan] 1 mg PO BID 11/25/14 Omalizumab [Xolair] 375 mg SQ Q14D 11/25/14 Temazepam [Restoril] 30 mg PO HS 11/25/14 Albuterol Sulfate [Proair Hfa] 2 puff INHALATION QID 05/31/17 Fluticasone/Vilanterol [Breo Ellipta 200-25 Mcg INH] 1 puff INHALATION RT-DAILY 01/21/21 Infliximab-Dyyb [Inflectra] 400 mg IV Q56D 01/21/21 Ibuprofen 400 - 800 mg PO BID PRN 04/07/22 L.acidoph,Paracasei, B.lactis [Probiotic] 1 each PO DAILY 04/07/22 Solu Cortef 100 mg IV. DIRECTED 04/07/22 Dicyclomine [Bentyl] 10 mg PO TID PRN 04/28/22 Magnesium 500 mg PO DAILY PRN 04/28/22 Sucralfate [Carafate] 1 gm PO DAILY PRN 04/28/22 Controlled Substance Measures - Controlled Substance Measures Is patient prescribed a controlled substance at discharge?: No
== END ==
LOC: PNWHC3 10:57
PROVIDERS: ATTEND Specialist
DX: M54.2 Cervicalgia (principal); M51.36 Other intervertebral disc degeneration, lumbar region; M47.816 Spondylosis without myelopathy or radiculopathy, lumbar region; G89.29 Other chronic pain; Z87.891 Personal history of nicotine dependence; Z91.010 Allergy to peanuts; Z88.1 Allergy status to other antibiotic agents; Z91.041 Radiographic dye allergy status; Z88.0 Allergy status to penicillin
CPT/HCPCS: 99211

== ENCOUNTER → 2022-06-15 | Outpatient (CLI) | payer MEDICARE ==
[2022-06-15 09:05] VITALS: BP 138/89; PULSE 60; RESP 18; TEMP 98.5
--- NOTE | 2022-06-15 14:44 | P.PAINPG ---
PQRS Measure Charge Sheet Comment: A 72 yr old male with a history of severe and chronic neck pain secondary to cervical degenerative disc diseases and spondylosis with facet arthropathy presents today for evaluation s/p ASAF C5-C6. He states he had little relief over the first two weeks, but admits to 80-90% pain relief x 3 weeks in the ce rvical spine thereafter. Pain level is 3/10 in intensity, localized to the R side of the neck, deep achy in character w radiation occasionally towards the R shoulder. Pain is provoked by forward flexion of the cervical spine. Pain is alleviated with PT integrated w massage Nov 2021, cold packs, heat, medications (Ibuprofen), topicals, chiropractic treatments monthly, laying supine, repositioning and rest. Interventional pain procedures completed include R paramedian C7-T1 Patient is currently on Ibuprofen Patient denies any side effects of the medication(s), denies excessive drowsiness or sleepiness, denies suicidal ideation and reports that the current pain medication is helping to control the pain and improve activities of daily living. Patient denies any motor or sensory deficits. Patient denies any fever or night sweats, denies any change in the bowel movements or urination. Physical Examination: -Constitutional: Cooperative. Not in acute distress . - Neurologic: Cranial nerve II to XII intact. No focal neurological deficits. - Psychatric: Alert & oriented x 3. Matching mood & appropriate affect. Judgment and insight intact. - Musculoskeletal: Cervical spine: Muscle bulk/ tone/ strength in the bilateral upper extremities normal Vertebral body tenderness to palpation over C6 Spurling test positive Distraction test positive Facet loading test positive Thoracic spine Muscle bulk / tone/ strength in the bilateral paraspinal muscles normal Vertebral body tender to palpation over Facet loading test positive Lumbar spine: Motor bulk/ tone/ strength lower extremities , thigh and legs : 5/5 Deep tendon reflexes : Normal Knee Jerk. Normal Ankle Jerk . Vertebral body tenderness to palpation over Lumbar Facet Loading Test positive Straight Leg Raise: positive at 30 degrees right side/ left side Gaenslen's Test positive Sacral spine : Severe tenderness over the Sacroiliac joint: right side / left side Range of motion: Flexion of the lumbar spine <60 degrees Range of motion: Extension of the lumbar spine <20 degrees Gaenslen's Test positive Rudy's Test positive Ankita test: positive right side / left side Thigh Thrust Test Sacral Thrust Test Assessment and plan: Chronic neck pain secondary to degenerative disc disease , spondylosis with facet arthropathy without myelopathy Recommendation of R paramedian C6-C7 LUIS. May need a series (up to 3 within a 6 mo period) for optimal pain relief. Risks, benefits of procedure discussed and pt verbalized understanding. Denies anticoagulant use or medical history of diabetes. All patient questions answered MAPS reviewed and it was appropriate. I have spent less than 30 minutes on patient care today. Dr Yoder was available by phone for the evaluation of this patient. The time was used to review the medical records including relevant urine studies and Prescription history (MAPs), review of the available imaging, evaluation and examination of the patient, coordination of care with the medical staff and if applicable referring physicians, as well as creation of the medical record PQRS Narrative: Smoking Status Former smoker Hx Alcohol Use (MH) No Home Medications: Ambulatory Orders LORazepam [Ativan] 1 mg PO BID 11/25/14 Omalizumab [Xolair] 375 mg SQ Q14D 11/25/14 Temazepam [Restoril] 30 mg PO HS 11/25/14 Albuterol Sulfate [Proair Hfa] 2 puff INHALATION QID 05/31/17 Fluticasone/Vilanterol [Breo Ellipta 200-25 Mcg INH] 1 puff INHALATION RT-DAILY 01/21/21 Infliximab-Dyyb [Inflectra] 400 mg IV Q56D 01/21/21 Ibuprofen 400 - 800 mg PO BID PRN 04/07/22 L.acidoph,Paracasei, B.lactis [Probiotic] 1 each PO DAILY 04/07/22 Solu Cortef 100 mg IV. DIRECTED 04/07/22 Dicyclomine [Bentyl] 10 mg PO TID PRN 04/28/22 Magnesium 500 mg PO DAILY PRN 04/28/22 Sucralfate [Carafate] 1 gm PO DAILY PRN 04/28/22 Controlled Substance Measures - Controlled Substance Measures Is patient prescribed a controlled substance at discharge?: No
== END ==
LOC: PNWHC3 08:30
PROVIDERS: ATTEND Specialist
DX: M50.30 Other cervical disc degeneration, unspecified cervical region (principal); M47.812 Spondylosis without myelopathy or radiculopathy, cervical region; G89.29 Other chronic pain; Z87.891 Personal history of nicotine dependence; Z91.010 Allergy to peanuts; Z88.1 Allergy status to other antibiotic agents; Z88.0 Allergy status to penicillin; Z91.041 Radiographic dye allergy status; Z88.8 Allergy status to other drugs, medicaments and biological substances
CPT/HCPCS: 99211

== ENCOUNTER 2022-06-22 12:06 | Day surgery (SDC) | payer MEDICARE ==
[2022-06-21 11:25] VITALS: BMI 25.1
[~2022-06-22 12:06] MED LIST changes: +ALBUTEROL NEB (CONC) 2.5 MG/0.5 ML INHALATION ONE; +ATROPINE SULFATE 0.4 MG/ML 1 ML VIAL IM ONE; -HYDROCORTISONE SUCCINATE 100 MG/2 ML VIAL IVP NR; -INFLIXIMAB-DYYB 400 MG in SODIUM CHLORIDE 0.9% 250 ML IV NR; +LACTATED RINGERS 1,000 ML IV SCH; +LIDOCAINE 2% (PF) 20 MG/ML 5 ML VIAL INHALATION ONE; +LIDOCAINE VISCOUS 300 MG/15 ML CUP MUCOUS MEM ONE; -SODIUM CHLORIDE 0.9% 500 ML 500 ML in EMPTY BAG 1 BAG IV PRN; -diphenhydrAMINE 50 MG/ML 1 ML VIAL IVP NR
[2022-06-22 12:33] VITALS: TEMP 97.7
[2022-06-22 12:44] LABS: Glucose,Whole Blood 176 mg/dL (70-110)
[2022-06-22] MEDS ORDERED: LIDOCAINE 2% INJ 20 MG/ML (2 ML VIAL) ONE (12:59)
[2022-06-22] MEDS ORDERED: MIDAZOLAM 2 MG/2 ML VIAL ONE (12:59)
[2022-06-22] MEDS ORDERED: KETAMINE 10 MG/ML 20 ML VIAL ONE (12:59)
[2022-06-22] MEDS ORDERED: PROPOFOL 10 MG/ML 20 ML VIAL IV ONE (12:59)
[2022-06-22] MEDS ORDERED: LIDOCAINE 2% INJ 20 MG/ML INTRATRACH ONE (13:06)
[2022-06-22 13:35] VITALS: BP 130/87; PULSE 89; RESP 18
--- NOTE | 2022-06-22 20:46 | PCN ---
PROCEDURE NOTE This is a Pulmonary/Critical Care Procedure note. PROCEDURE: Bronchoscopy, airway examination, therapeutic lavage, BAL. OPERATORS: Dr. Brown and Dr. Cai. There was informed consent and universal timeout. ANESTHESIA PROVIDED: General anesthesia. The patient's procedure was done in [facility] endoscopy room #1. PREOPERATIVE DIAGNOSES: Retained secretions, pneumonia, bronchitis, asthma. POSTOPERATIVE DIAGNOSES: Retained secretions, pneumonia, bronchitis, asthma. DESCRIPTION OF PROCEDURE: After the patient was adequately sedated and being fully monitored, the bronchoscope was inserted through the right nostril. It passed through the right nasopharynx into the oropharynx. The hypopharynx was identified. The hypopharyngeal structures, including anterior commissure, true cords, false cords, arytenoids, piriform sinuses, right and left valleculae and epiglottis all appeared normal. The glottic opening was topicalized with lidocaine. The bronchoscope was pushed through the glottic opening into the trachea. The trachea appeared relatively normal except for the fact that in the distal trachea, there were thick purulent secretions. They were suctioned. The tracheal jai was sharp. The right and left mainstem were topicalized. Next, there was a thorough evaluation of the right upper lobe and its 3 segments, right middle lobe and its 2 segments, right lower lobe and its 5 segments, left upper lobe proper and its 2 segments, lingula and its 2 segments and left lower lobe and its 4 segments. There was diffuse airway erythema and hyperemia. There was mucosal friability. There was vascular engorgement. There was no dominant mass or tumor. Purulent secretions noted throughout. They were suctioned with some difficulty. Saline was used to aid in suctioning of the secretions. The bronchoscope was placed into the right middle lobe. We did a formal BAL. 35 mL of purulent fluid was recovered. It will be sent to the laboratory for analysis. Additional secretions were suctioned and the bronchoscope was withdrawn. There was no immediate complication. The patient tolerated the procedure very well. The patient will be recovered. MMODL / IJN: [id number] /
[2022-06-23 01:26] LABS: Appearance,BF Blood Tinged
== END 2022-06-22 13:58 | disposition home or self-care (01) ==
LOC: ORWHC2ENDO 12:06
PROVIDERS: ATTEND Internal Medicine Critical Care Medicine
DX: J18.9 Pneumonia, unspecified organism (principal); J45.909 Unspecified asthma, uncomplicated; K21.9 Gastro-esophageal reflux disease without esophagitis; Z88.1 Allergy status to other antibiotic agents; Z88.0 Allergy status to penicillin; Z91.041 Radiographic dye allergy status; Z91.010 Allergy to peanuts; Z83.3 Family history of diabetes mellitus; Z87.891 Personal history of nicotine dependence; Z82.49 Family history of ischemic heart disease and other diseases of the circulatory system; Z82.3 Family history of stroke; Z98.890 Other specified postprocedural states
CPT/HCPCS: 88108; 88305; 89050; 87252; 87070; 87205; 87116; 87102; 87077; 87186; 87206; 31624; J2001 ×2; J2250; J0461; J2704; 87496; 87498; 87502; 87529; 87634; 87798

== ENCOUNTER 2022-06-28 10:26 | Day surgery (SDC) | payer MEDICARE ==
[2022-06-27 13:57] VITALS: BMI 24.7
[2022-06-28 10:43] VITALS: BP 146/85; PULSE 64; RESP 16; TEMP 97.6
[2022-06-28] MEDS ORDERED: LIDOCAINE 1% INJ 10MG/ML (30 ML VIAL-PF) SQ ONE (13:00)
--- NOTE | 2022-06-28 13:39 | IR ---
PICC LINE PLACEMENT: HISTORY: Infection requiring long-term antibiotic therapy PROCEDURE: Ultrasound and fluoroscopic guidance of PICC line placement. COMPLICATIONS: None ANESTHESIA: 1. 1% Lidocaine locally. FINDINGS/TECHNIQUE: The procedure was explained to the patient. The risks, complications, benefits and alternatives were discussed and any questions were answered. Informed consent was obtained. The patient was placed supine on the fluoroscopic table and prepped and draped in the usual sterile fash ion. Utilizing a 21 gauge needle and sonographic and fluoroscopic guidance, access in the left basi lic vein was achieved and there is placement of a 0.018 guidewire. The vein is patent. A 4-F sheath was placed over the guidewire. The guidewire and dilator were removed and a 4-F. PICC line was plac ed through the sheath with the tip at the level of the SVC. The sheath was removed, the catheter was flushed and sutured into position. The patient was stable throughout the procedure and remained sta ble upon discharge from the Department of Radiology. The vein puncture was patent under ultrasound. A truong scale image was obtained to document patency of the vein punctured. All elements of the maximal barrier technique were utilized. FLUOROSCOPY TIME: 0.1 minutes and 1 images submitted IMPRESSION: Successful PICC line placement under ultrasound and fluoroscopic guidance.
== END 2022-06-28 13:40 | disposition home or self-care (01) ==
LOC: CATHCVL 10:26
PROVIDERS: ATTEND Radiology Diagnostic Radiology
DX: T80.219A Unspecified infection due to central venous catheter, initial encounter (principal); B96.5 Pseudomonas (aeruginosa) (mallei) (pseudomallei) as the cause of diseases classified elsewhere
CPT/HCPCS: 36573; 82565; 84520; C1751; C1769; J2001

== ENCOUNTER → 2022-07-08 | Outpatient (CLI) | payer MEDICARE ==
[~2022-07-08] MED LIST changes: -ALBUTEROL NEB (CONC) 2.5 MG/0.5 ML INHALATION ONE; -ATROPINE SULFATE 0.4 MG/ML 1 ML VIAL IM ONE; +HYDROCORTISONE SUCCINATE 100 MG/2 ML VIAL IVP NR; +INFLIXIMAB-DYYB 400 MG in SODIUM CHLORIDE 0.9% 250 ML IV NR; -LACTATED RINGERS 1,000 ML IV SCH; -LIDOCAINE 2% (PF) 20 MG/ML 5 ML VIAL INHALATION ONE; -LIDOCAINE VISCOUS 300 MG/15 ML CUP MUCOUS MEM ONE; +SODIUM CHLORIDE 0.9% 500 ML 500 ML in EMPTY BAG 1 BAG IV PRN; +diphenhydrAMINE 50 MG/ML 1 ML VIAL IVP NR
== END ==
LOC: PROCWHC3 10:50
PROVIDERS: ATTEND Internal Medicine Gastroenterology
DX: Z53.9 Procedure and treatment not carried out, unspecified reason (principal)

== ENCOUNTER → 2022-07-27 | Outpatient (CLI) | payer MEDICARE ==
[2022-07-27 10:58] VITALS: RESP 16; TEMP 97.9
[2022-07-27 12:37] VITALS: BP 130/81; PULSE 55
== END ==
LOC: PROCWHC3 10:46
PROVIDERS: ATTEND Internal Medicine Gastroenterology
DX: K51.90 Ulcerative colitis, unspecified, without complications (principal); Z91.010 Allergy to peanuts; Z88.1 Allergy status to other antibiotic agents; Z88.0 Allergy status to penicillin; Z91.013 Allergy to seafood; Z91.041 Radiographic dye allergy status; Z87.891 Personal history of nicotine dependence
CPT/HCPCS: 96375; 96413; 96415; J1720; Q5103

== ENCOUNTER 2022-08-02 11:08 | Day surgery (SDC) | payer MEDICARE ==
[~2022-08-02 11:08] MED LIST changes: -HYDROCORTISONE SUCCINATE 100 MG/2 ML VIAL IVP NR; -INFLIXIMAB-DYYB 400 MG in SODIUM CHLORIDE 0.9% 250 ML IV NR; +LACTATED RINGERS 1,000 ML IV SCH; +LIDOCAINE 1% (10MG/ML) FOR IV START INTRADERMA PRN; -SODIUM CHLORIDE 0.9% 500 ML 500 ML in EMPTY BAG 1 BAG IV PRN; -diphenhydrAMINE 50 MG/ML 1 ML VIAL IVP NR
[2022-08-02 11:46] VITALS: RESP 16; TEMP 97.8
[2022-08-02 11:58] LABS: Glucose,Whole Blood 107 mg/dL (70-110)
[2022-08-02] MEDS ORDERED: DEXAMETHASONE SOD PHOSPHATE 10 MG/ML 1 ML VIAL ONE (12:19)
[2022-08-02] MEDS ORDERED: fentaNYL (PF) 50 MCG/ML 2 ML AMP ONE (12:19)
[2022-08-02] MEDS ORDERED: MIDAZOLAM 2 MG/2 ML VIAL ONE (12:19)
--- NOTE | 2022-08-02 12:33 | P.PCN ---
Date of Procedure: 08/02/22 Procedure(s) Performed: . PROCEDURE 1. Cervical epidural steroid injection under fluoroscopic guidance, C6-7 (fluoroscopy images available in the radiology department ) PREOPERATIVE DIAGNOSIS: 1- Cervical Degenerative Disc Diseases 2- Cervical radiculopathy., 3-cervical spondylosis with cervical Facet arthropathy without myelopathy.4-cervical spinal stenosis POSTOPERATIVE DIAGNOSIS: : 1- Cervical Degenerative Disc Diseases , 2- Cervical radiculopathy. 3-,cervical spondylosis with cervical Facet arthropathy without myelopathy. 4-cervical spinal stenosis ANESTHESIA: moderate sedation, with Versed 2 mg and Fentanyl 100 mcg. Sedation start time : 1223 Sedation end time : 1229 EBL 0 PROCEDURE INDICATION: The patient with neck pain and radiculitis unresponsive to conservative treatment consents for procedure. PROCEDURE DESCRIPTION / TECHNIQUE: The patient was seen and identified in the preoperative area. Risks, benefits, complications, including but not limited to infections ,bleeding , allergic reactions to the medications ,and not complete pain releife, and alternatives were discussed with the patient, the patient agreed to proceed with the procedure and signed the consent. Patient was taken to the OR and time out was completed. The patient was placed in the prone position on the procedure table. A pillow was placed under the patients chest to increase the cervical interlaminar space. The cervical area was prepped and draped in the usual sterile fashion. Vital signs were closely monitored during the procedure. Conscious sedation was used during the procedure to decrease patients anxiety. Using anterior-posterior fluoroscopy, the C6-7 interlaminar space was identified and the skin over this site was marked and then infiltrated with 1% lidocaine subcutaneously. Subsequently, a 20-gauge 3-1/2-inch Tuohy epidural needle was inserted and advanced toward the epidural space by means of the ``hanging-drop technique and guided by AP and lateral fluoroscopy, after negative aspiration for blood and CSF and in the absence of paresthesias. then, mixture containing 15 mg Dexamethasone and 2 ml of preservative-free normal saline injected . Needle was withdrawn intact, skin was cleansed, and bandages were applied. Complications= none. Disposition= patient was placed in supine position and transferred to the recovery room area in stable condition and there was no evidence of upper or lower extremity motor or sensory deficit after the procedure patient was discharged from recovery room after discharge criteria met and home discharge instructions was given by the staff and patient will follow with the pain clinic in 2-4 weeks
[2022-08-02] MEDS ORDERED: IV FLUID CONTINUATION 1,000 ML IV ONE (12:35)
--- NOTE | 2022-08-02 12:40 | FL ---
EXAMINATION TYPE: FL guided pain mgmt statistic DATE OF EXAM: 08/02/2022 HISTORY: Fluoroscopy time 1 seconds of fluoroscopy provided. IMPRESSION: 1. Fluoroscopy time.
[2022-08-02 12:52] VITALS: BP 149/91; PULSE 51
== END 2022-08-02 13:10 | disposition home or self-care (01) ==
LOC: ORPAIN 11:08
PROVIDERS: ATTEND Specialist
DX: M50.123 Cervical disc disorder at C6-C7 level with radiculopathy (principal); M47.22 Other spondylosis with radiculopathy, cervical region; M48.02 Spinal stenosis, cervical region; Z91.09 Other allergy status, other than to drugs and biological substances
CPT/HCPCS: 62321; J2250; J1100; J3010

== ENCOUNTER → 2022-08-22 | Outpatient (CLI) | payer MEDICARE ==
[2022-08-22 11:20] VITALS: BP 130/82; PULSE 65; RESP 18; TEMP 98.8
--- NOTE | 2022-08-22 14:53 | P.PAINPG ---
PQRS Measure Charge Sheet Comment: A 72 yr old male with a history of severe and chronic low back pain secondary to lumbar degenerative disc diseases and lumbar spondylosis with facet arthropathy without myelopathy presents today for evaluation s/p LUIS C6-C7. Pt states he experienced 20% pain relief x 3 wks s/p procedure. Pain level is curr ently at 1/10 in intensity, constant, localized in the R lower cervical spine, sharp in character w shooting towards the back of his R shoulder. Pain is provoked as high as 5/10 by laying down or flexion. Pain is alleviated with PT x 6 wks which ended in Nov 2021, chiropractic treatments monthly x 6 mo which ended Jun 2022, ice, meds (Ibuprofen), topicals, repositioning and rest. Pt states he forgot to tell us he was on oral steroids 4 times a day days prior to receiving the LUIS. Would not recommend additional steroids at this time. Interventional pain procedures completed include LUIS C6-C7 Patient is currently on Ibuprofen Patient denies any side effects of the medication(s), denies excessive drowsiness or sleepiness, denies suicidal ideation and reports that the current pain medication is helping to control the pain and improve activities of daily living. Patient denies any motor or sensory deficits. Patient denies any fever or night sweats, denies any change in the bowel movements or urination. Physical Examination: -Constitutional: Cooperative. Not in acute distress . - Neurologic: Cranial nerve II to XII intact. No focal neurological deficits. - Psychatric: Alert & oriented x 3. Matching mood & appropriate affect. Judgment and insight intact. - Musculoskeletal: Cervical spine: Muscle bulk/ tone/ strength in the bilateral upper extremities normal Vertebral body tenderness to palpation over C4, R of midline Spurling test positive Distraction test positive Facet loading test positive Thoracic spine Muscle bulk / tone/ strength in the bilateral paraspinal muscles normal Vertebral body tender to palpation over Facet loading test positive Lumbar spine: Motor bulk/ tone/ strength lower extremities , thigh and legs : 5/5 Deep tendon reflexes : Normal Knee Jerk. Normal Ankle Jerk . Vertebral body tenderness to palpation over Lumbar Facet Loading Test positive Straight Leg Raise: positive at 30 degrees right side/ left side Gaenslen's Test positive Sacral spine : Severe tenderness over the Sacroiliac joint: right side / left side Range of motion: Flexion of the lumbar spine <60 degrees Range of motion: Extension of the lumbar spine <20 degrees Gaenslen's Test positive Rudy's Test positive Ankita test: positive right side / left side Thigh Thrust Test Sacral Thrust Test Assessment and plan: Chronic neck pain secondary cervical degenerative disc disease, spondylosis with facet arthropathy without myelopathy Risks outweigh benefits of additional steroid treatments at this time. Pt may follow up w an orthopedic surgeon for additional treatment options. Contact information and referral for Dr Godinez provided. Pt may return to our clinic on an as needed basis. Risks, benefits of procedure discussed and pt verbalized understanding. Denies anticoagulant use or medical history of diabetes. All patient questions answered I have spent less than 30 minutes on patient care today. Dr Yoder was available by phone for the evaluation of this patient. The time was used to review the medical records including relevant urine studies and Prescription history (MAPs), review of the available imaging, evaluation and examination of the patient, coordination of care with the medical staff and if applicable referring physicians, as well as creation of the medical record - Pain Location Right Lower Neck Non-Pharmacological Interventions: Chiropractic Treatment, Home Exercise, Ice, Physical Therapy, Position/Reposition, Sitting, Standing, Stretching Pharmacological Interventions: Epidural, PRN Medication, Topical Medication PQRS Narrative: Smoking Status Former smoker Hx Alcohol Use (MH) No Home Medications: Ambulatory Orders LORazepam [Ativan] 1 mg PO BID 11/25/14 Omalizumab [Xolair] 375 mg SQ Q14D 11/25/14 Temazepam [Restoril] 30 mg PO HS 11/25/14 Albuterol Sulfate [Proair Hfa] 2 puff INHALATION QID PRN 05/31/17 Fluticasone/Vilanterol [Breo Ellipta 200-25 Mcg INH] 1 puff INHALATION WEEKLY 01/21/21 Infliximab-Dyyb [Inflectra] 400 mg IV Q56D 01/21/21 Ibuprofen 600 mg PO TID PRN 04/07/22 L.acidoph,Paracasei, B.lactis [Probiotic] 1 each PO DAILY 04/07/22 Dicyclomine [Bentyl] 10 mg PO TID PRN 04/28/22 Magnesium 500 mg PO DAILY PRN 04/28/22 Sucralfate [Carafate] 1 gm PO DAILY PRN 04/28/22 dexAMETHasone 0 mg PO DIRECTED 07/29/22 Controlled Substance Measures - Controlled Substance Measures Is patient prescribed a controlled substance at discharge?: No
== END ==
LOC: PNWHC3 10:49
PROVIDERS: ATTEND Specialist
DX: M47.812 Spondylosis without myelopathy or radiculopathy, cervical region (principal); M50.30 Other cervical disc degeneration, unspecified cervical region; G89.29 Other chronic pain; Z87.891 Personal history of nicotine dependence; Z88.0 Allergy status to penicillin; Z91.018 Allergy to other foods; Z88.8 Allergy status to other drugs, medicaments and biological substances; Z91.040 Latex allergy status; Z91.013 Allergy to seafood
CPT/HCPCS: 99211

== ENCOUNTER → 2022-09-21 | Outpatient (CLI) | payer MEDICARE ==
[~2022-09-21] MED LIST changes: +HYDROCORTISONE SUCCINATE 100 MG/2 ML VIAL IVP NR; +INFLIXIMAB-DYYB 400 MG in SODIUM CHLORIDE 0.9% 250 ML IV NR; -LACTATED RINGERS 1,000 ML IV SCH; -LIDOCAINE 1% (10MG/ML) FOR IV START INTRADERMA PRN; +SODIUM CHLORIDE 0.9% 500 ML 500 ML in EMPTY BAG 1 BAG IV PRN; +diphenhydrAMINE 50 MG/ML 1 ML VIAL IVP NR
[2022-09-21 11:10] VITALS: RESP 16; TEMP 98.6
[2022-09-21 11:27] LABS: Basophils # (A) 0.1 k/uL (0-0.2); Basophils % (A) 1 %; Eosinophils # (A) 0.3 k/uL (0-0.7); Eosinophils % (A) 5 %; HCT 40.2 % (39.0-53.0); Lymphocytes % (A) 32 %; MCH 32.2 pg (25.0-35.0); MCHC 34.8 g/dL (31.0-37.0); MCV 92.4 fL (80.0-100.0); Mean Platelet Volume 9.6; Monocytes # (A) 0.3 k/uL (0-1.0); Monocytes % (A) 5 %; Neutrophils # (A) 3.3 k/uL (1.3-7.7); Neutrophils % (A) 53 %; Platelet Count 200 k/uL (150-450); RBC 4.35 m/uL (4.30-5.90); RDW 12.7 % (11.5-15.5); WBC 6.2 k/uL (3.8-10.6)
[2022-09-21 12:07] LABS: Albumin 4.6 g/dL (3.5-5.0); Potassium 4.2 mmol/L (3.5-5.1); Total Bilirubin 1.1 mg/dL (0.2-1.3); Total Protein 7.3 g/dL (6.3-8.2)
[2022-09-21 12:45] VITALS: BP 123/81; PULSE 56
== END | disposition home or self-care (01) ==
LOC: PROCWHC3 10:56
PROVIDERS: ATTEND Internal Medicine Gastroenterology
DX: K51.90 Ulcerative colitis, unspecified, without complications (principal)
CPT/HCPCS: 80053; 85025; 96413; 96415; 36415; J1720; Q5103

== ENCOUNTER → 2022-10-14 | Outpatient (CLI) | payer MEDICARE ==
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
== END | disposition home or self-care (01) ==
LOC: RADMRIMAIN 13:00
PROVIDERS: ATTEND Orthopaedic Surgery
DX: M50.121 Cervical disc disorder at C4-C5 level with radiculopathy (principal); M25.78 Osteophyte, vertebrae
CPT/HCPCS: 72141

== ENCOUNTER → 2022-11-16 | Outpatient (CLI) | payer MEDICARE ==
[~2022-11-16] MED LIST changes: +HYDROCORTISONE SUCCINATE 100 MG/2 ML VIAL IV ONE; -HYDROCORTISONE SUCCINATE 100 MG/2 ML VIAL IVP NR; +INFLIXIMAB-DYYB 400 MG in SODIUM CHLORIDE 0.9% 210 ML IV NR; -INFLIXIMAB-DYYB 400 MG in SODIUM CHLORIDE 0.9% 250 ML IV NR; -diphenhydrAMINE 50 MG/ML 1 ML VIAL IVP NR; +diphenhydrAMINE 50 MG/ML 1 ML VIAL IVP ONE
[2022-11-16 11:20] VITALS: RESP 16; TEMP 98
[2022-11-16 12:48] VITALS: BP 114/62; PULSE 68
== END ==
LOC: PROCWHC3 11:03
PROVIDERS: ATTEND Internal Medicine Gastroenterology
DX: K51.90 Ulcerative colitis, unspecified, without complications (principal); Z87.891 Personal history of nicotine dependence; Z91.018 Allergy to other foods; Z88.1 Allergy status to other antibiotic agents; Z91.041 Radiographic dye allergy status; Z88.8 Allergy status to other drugs, medicaments and biological substances; Z88.0 Allergy status to penicillin; Z91.013 Allergy to seafood
CPT/HCPCS: 96365; 96366; J1720; Q5103; 96375; 96413; 96415

== ENCOUNTER 2023-01-13 09:16 | Day surgery (SDC) | payer MEDICARE ==
[2023-01-09 10:19] VITALS: BMI 26.1
[~2023-01-13 09:16] MED LIST changes: +ACETAMINOPHEN TAB 500 MG TAB PO PRN; +DEXAMETHASONE SOD PHOSPHATE 4 MG/ML 1 ML VIAL IV ONE; +GABAPENTIN 300 MG CAP PO PRN; -HYDROCORTISONE SUCCINATE 100 MG/2 ML VIAL IV ONE; -INFLIXIMAB-DYYB 400 MG in SODIUM CHLORIDE 0.9% 210 ML IV NR; +LIDOCAINE 1% (10MG/ML) FOR IV START INTRADERMA PRN; +ONDANSETRON 4 MG/2 ML VIAL IVP PRN; -SODIUM CHLORIDE 0.9% 500 ML 500 ML in EMPTY BAG 1 BAG IV PRN; +TRANEXAMIC ACID IN NACL,ISO-OS 1,000 MG in SALINE 1 100ML.BAG IVPB PRN; -diphenhydrAMINE 50 MG/ML 1 ML VIAL IVP ONE
[2023-01-13] MEDS: LACTATED RINGERS 1,000 ML IV SCH (10:18)
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
[2023-01-13] MEDS ORDERED: NALOXONE 0.4 MG/ML 1 ML VIAL ONE (11:10)
[2023-01-13] MEDS ORDERED: LIDOCAINE 2% INJ 20 MG/ML (2 ML VIAL) ONE (11:10)
[2023-01-13] MEDS ORDERED: GELATIN SPONGE,ABSORB (LARGE) 1 EACH SPONGE TOPICAL ONE (11:10)
[2023-01-13] MEDS ORDERED: SUCCINYLCHOLINE CHLORIDE 200 MG/10 ML VIAL IV ONE (11:10)
[2023-01-13] MEDS ORDERED: TRANEXAMIC ACID IN NACL,ISO-OS 1,000 MG/100 ML BAG ONE (11:10)
[2023-01-13] MEDS ORDERED: THROMBIN (BOVINE) 5,000 UNIT VIAL TOPICAL ONE (11:10)
[2023-01-13] MEDS ORDERED: KETAMINE 10 MG/ML 20 ML VIAL ONE (11:10)
[2023-01-13] MEDS ORDERED: HYDROmorphone (PF) 1 MG/ML ONE (11:10)
[2023-01-13] MEDS ORDERED: fentaNYL (PF) 50 MCG/ML 2 ML AMP ONE (11:10)
[2023-01-13] MEDS ORDERED: MIDAZOLAM 2 MG/2 ML VIAL ONE (11:10)
[2023-01-13] MEDS ORDERED: ROCURONIUM 10 MG/ML (5 ML VIAL) IV ONE (11:10)
[2023-01-13] MEDS ORDERED: PROPOFOL 10 MG/ML 20 ML VIAL IV ONE (11:10)
[2023-01-13] MEDS ORDERED: BUPIVACAIN-EPI 0.25%-1:200,000 30 ML VIAL SQ ONE (11:10)
--- NOTE | 2023-01-13 12:49 | XR ---
Intraoperative/procedural fluoroscopic services were provided for C3-C4 fusion. Hardware appears inta ct with appropriate alignment. Total fluoroscopy time is 18.4 seconds with a total of 6 submitted titi ges to PACS. Total DAP 0.2311 Gycm2. Please see the operative note for further details.
[2023-01-13] MEDS ORDERED: MAGNESIUM HYDROXIDE 2,400 MG/10 ML CUP PO PRN (13:45)
[2023-01-13] MEDS ORDERED: HYDROcodone/APAP 5-325MG 1 EACH TAB PO PRN (13:45)
[2023-01-13] MEDS ORDERED: CYCLOBENZAPRINE 5 MG TAB PO PRN (13:45)
[2023-01-13] MEDS ORDERED: HYDROmorphone 1 MG/ML 1 ML SYRINGE IVP PRN (13:45)
[2023-01-13] MEDS ORDERED: SENNOSIDES-DOCUSATE SODIUM 1 EACH TAB PO PRN (13:45)
[2023-01-13] MEDS ORDERED: HYDROcodone/APAP 7.5-325MG 1 EACH TAB PO PRN (13:47)
[2023-01-13] MEDS: HYDROmorphone 0.5 MG/0.5 ML SYRINGE IVP PRN ×5 (14:12→23:26)
[2023-01-13] MEDS ORDERED: hydrALAZINE HCL 20 MG/ML 1 ML VIAL IVP ONE (14:42)
[2023-01-13] MEDS: ACETAMINOPHEN TAB 325 MG TAB PO SCH ×2 (18:46→23:26)
[2023-01-14] MEDS: HYDROmorphone 0.5 MG/0.5 ML SYRINGE IVP PRN ×2 (02:21→05:26)
[2023-01-14] MEDS: ACETAMINOPHEN TAB 325 MG TAB PO SCH (05:24)
[2023-01-14 07:48] VITALS: BP 148/77; PULSE 58; RESP 18; TEMP 98.6
--- NOTE | 2023-01-14 09:42 | CT ---
EXAMINATION TYPE: CT cervical spine wo con DATE OF EXAM: 01/14/2023 COMPARISON: 12/08/2022 HISTORY: 73-year-old male Cervical fusion post op TECHNIQUE: Contiguous axial scanning of the cervical spine without IV contrast. Coronal and sagittal reconstructions performed. CT DLP: 677.10 mGycm Automated exposure control for dose reduction was used. FINDINGS: Interval placement of C3-C4 ACDF. Streak artifact at this level limits assessment of the spinal canal here. The previous grade 1 retrolisthesis has improved. There is persistent uncovertebral joint spur ring which may contribute to severe right and moderate left neuroforaminal stenosis. Postoperative pr evertebral soft tissue swelling and foci of air. Moderate degenerative disc disease C5-C7 levels. Possible mild narrowing of the spinal canal at both of these levels. Additional facet and uncovertebral joint arthropathy lower cervical spine. At C4-C5, moderate right and mild left neuroforaminal stenosis. At C5-C6, moderate to severe left and moderate right neuroforaminal stenosis. At C6-C7, moderate to severe left and moderate right neuroforaminal stenosis. Some adherent mucoid debris along the left anterolateral wall of the trachea. IMPRESSION: 1. RECENT POSTOPERATIVE CHANGES RELATING TO C3-C4 ACDF. RESIDUAL HYPEROSTOTIC CHANGES HERE MAY CONTRI BUTE TO A SEVERE RIGHT AND MODERATE LEFT NEURAL FORAMINAL STENOSIS. STREAK ARTIFACT LIMITS ASSESSMENT OF THE SPINAL CANAL AT THIS LEVEL. THE PREVIOUSLY SEEN RETROLISTHESIS AT THIS LEVEL HAS IMPROVED AFT ER THE CERVICAL FUSION. 2. SIMILAR MODERATE SPONDYLOTIC CHANGE ESPECIALLY C5-C7 LEVELS ABOVE.
--- NOTE | 2023-01-14 09:56 | P.DS ---
Providers Date of admission: 01/13/2023 Expected date of discharge: 01/14/23 Attending physician: Jeffrey Godinez DO Consults: 01/13/23 13:46 Consult Physician Routine Consulting Provider: Will Nava Consult Reason/Comments: medical management Do you want consulting provider notified?: Yes Primary care physician: Radha Wilson [facility] Course: Date of admission: 01/13/2023 Date of discharge: 01/14/2023 Admission diagnosis: Cervical spondylosis and stenosis, bilateral extremity radiculopathy Discharge diagnosis: Same Attending physician: Dr. Godinez Surgical procedures: ACDF C3-C4 Brief history: Patient is a 73-year-old male who has been evaluated in the outpatient setting for spondylosis and stenosis along with bilateral extremity. Conservative measures were first attempted and unsuccessful, patient was scheduled for a elective ACDF of C3-C4. Hospital course: Details of patient's surgery can be found in operative report. Patient tolerated the procedure well and was subsequently transported to orthopedic floor. Patient's orthopeidc and medical care was provided daily. Patient had daily laboratory tests performed for evaluation of overall blood counts. Patient had daily physical therapy to include strengthening range of motion as well as education with walker ambulation. Patient was treated with MINDA hose and compression stocking for their postoperative DVT prophylaxis during their inpatient stay. Patient was noted to have a relatively uneventful postoperative course. Patient reported satisfactory pain control with oral pain medications by postoperative day 0. Patient showed satisfactory progress with physical therapy. Patient moved steadily through the program and had no difficulty meeting the goals by postoperative day 1. Given patient's otherwise satisfactory course and having met physical therapy goals, plan is to discharge patient home on postoperative day 1. Discharge condition/disposition: Patient will be discharged home in stable condition. Discharge medications: Instructions are given on resumption of patient's normal daily medications per primary care recommendation, in addition patient will be prescribed tramadol 50 mg, Flexeril 5 mg, Duricef 500 mg, Senna Spine Discharge and Recovery Instructions Dressing: Leave your dressing in place for a total of 5 days post operatively. Then you may remove your dressing and leave open to air. Keep the area clean and if not able to keep area clean, then cover with sterile gauze and tape. Showering: You may shower 3 days after your procedure allowing soap and water to run over incision. Do not scrub. Do not soak. Blot dry. Follow up: Please confirm a follow up appointment with your surgeon 3 weeks post operatively. Please make an appointment to follow up with your PCP in 1-2 weeks after surgery for evaluation 3 phase, 3-week plan POST OP WEEKS 1-3 1. Lifting/carrying/pushing/pulling limited to less than 5 pounds. 2. Do not sit for longer than 15 minutes at one time. Get up and walk around. Prolonged sitting is NOT advised. If you lay down, see if you can tolerate laying down on you front (belly side) 3. Walk for periods of 15 minutes = 1 mile but no longer; do it multiple times times each day. 4. Ice your low back after activity. POST OP WEEKS 3-6 1. Lifting limited to less than 20 pounds. 2. Do not sit for longer than 30 minutes at a time. Frequently change positions. Use a sit-to stand workstation or take frequent breaks from sitting if you have returned to work. 3. Walk for 30 minutes each day. If possible, do these three or more times a day POST OP WEEKS 6+ At your 6-week appointment we will give you a physical therapy referral to focus on a core stabilization and strengthening program. You should also work on leg & buttock strengthening, hamstring & quadriceps stretching, and continue a low impact aerobic activity program such as swimming, walking, or riding a stationary bicycle. During the initial 6 weeks after your surgery, you are at the highest risk of re-injuring your spine. You should generally avoid BLTs (bending, lifting and twisting combination motions) and follow the above guidelines to reduce the chance of reinjury. You can anticipate post op appointments in our office at approximately 3 weeks and 6 weeks after your surgery. INCISION CARE: If your incision is not draining you do NOT need to cover it with a dressing. Keep your incision clean, dry and intact. In most cases, we apply skin glue, taylor or sutures to the incision at the time of surgery. This will be like a crust or have the appearance of a scab and will fall off in time on its own. The stitches or taylor need to be removed at 3 weeks post op appointment. You may begin to shower 3 days after surgery (this allows the glue to cooper well). However, please avoid scrubbing the incision site or peeling off any of the skin glue. This will ensure optimal healing of your incision. Also, during this time avoid soaking the incision area in water - this includes swimming pools, hot tubs or baths. No ointments, lotions or oils on the incision until your surgeon allows. Leave taylor, sutures or glue in place. Neurological dysfunction that comes on suddenly can also be a sign of a stroke. Below some common symptoms of a stroke are listed: B - balance difficulty such as sudden onset walking or leaning to one side - NEW E - eye problem such as sudden double vision or trouble seeing on one side - NEW F - Facial weakness or numbness on one side - NEW A - Arm or leg weakness or numbness on one side - NEW S - Slurred speech or difficulty with word finding - NEW T - Time is BRAIN! Call 911 as soon as you recognize these symptoms Diet: Consume a regular diet rich in vegetables and lean protein such as chicken or fish. You should consume in a ratio of approximately 20% fats|40% carbohydrates|40%protein. Vegetables, sweet potatoes, brown rice or quinoa are examples of good carbohydrates. Chips, white bread, cookies and sweets/sugar are examples of bad carbohydrates. Limit your bad carbs, go wild with good carbs. "Life's Simple 7" Guidelines as per [place] [employer] These will help you reclaim your life after surgery and core maker helper in your recovery, keeping in mind your restrictions. (1) Get Active. Physical activity can help people lose weight, control high blood pressure and cholesterol, feel emotionally better, and sleep better. (2) Control Cholesterol. Avoid a diet high in saturated fat, trans fat, & cholesterol. Limit whole milk & cream, ice cream, butter, egg yolks, processed meats (like sausage and hot dogs), and fatty meats. Choose healthy foods that are low in saturated fat, trans fat and cholesterol which include: Fruits and vegetables, fiber rich grain products (like whole grain pasta and brown rice), lean meat such as chicken, fish, nuts, seeds, and legumes. (3) Eat Better. Eat small portions. Shop at the grocery with a list and do not stray from it. Tips for a healthy diet include: Limit sodium intake to less than 1500mg daily, avoid prepackaged, processed, and fast foods, choose a diet rich in fruits, vegetables, and whole grain, high fiber foods, and limit saturated & cholesterol in your diet. (4) Manage Blood Pressure. If you have high blood pressure, you should have a cuff at home so that you can check your blood pressure regularly. Be sure you have a good cuff. An arm one is generally better than a wrist one. Bring the cuff to a doctor's appointment to validate that the measurements that your cuff are taking are accurate. Take your blood pressure twice daily when you are sitting down and relaxing. Record the numbers in a log and bring this log with you to your doctors' appointments. (5) Lose Weight if your BMI is above 25. A healthy BMI is between 19-25. To calculate Your BMI, you may use a Standard BMI Calculator on the NIH BMI website: <www.nhlbi.nih.gov/guidelines/obesity/BMI/bmicalc.htm>. Weigh oneself daily. If you are overweight, set a goal to lose weight. A pound a week loss if needed is a good target. (6) Reduce Blood Sugar. Limit foods and liquids with "added sugars." (Added sugars include sucrose, fructose, glucose, maltose, dextrose, high fructose corn syrup, corn syrup, concentrated fruit juice and honey). (7) Stop Smoking. If you smoke, quitting smoking is one of the best things that you can do for your health. Smoking increases your risk of heart attack, stroke, and peripheral vascular disease, which is a build-up of plaque in your arteries. Please discard all the cigarettes and lighters in your house. Have a plan for what you will do when you have the urge to smoke. Direct and second- hand smoke shortens your life as well as the lives of your family, friends and others around you. For your health and the health of those around you, please consider quitting! Proper Bending Body Mechanics: Maintain a wide stance with one foot slightly in front of the other. Keep your back straight. Bend utilizing the strength in your hips and knees. Do not bend at the waist. Maintain the lifted object at your waist-level close to your body. Avoid lifting weight that causes immediately pain or pain anywhere in the body afterwards. Smoking/Nicotine If there was ever one thing that you could do to increase your overall health, decrease your risk of cardiovascular problems by about 39% the second you make the choice, it is to STOP SMOKING. Your body's most instant gratification is the second you stop smoking. We have all heard the studies, read the articles but it is true, smoking is extremely bad for your overall health, and moreover it is detrimental to your bone health. Nicotine, IN ANY FORM, kills bone cells, prevents your body from healing fractures, and significantly prolongs healing after surgery. In spine surgery specifically, it increases your risk of not healing your bones to create a fusion and increases your risk of having a revision surgery due to this up to 60%. I know it is hard. I know it feels impossible. But there are ways. Take control of your life. We are here to help you through it. And when you are ready, ask us and we can direct you to help if you desire. Use the START Plan to Quit Smoking (please visit the Helpguide.org website listed below for more information): S = Set a quit date. Choose a date within the next 2 weeks, so you have enough time to prepare without losing your motivation to quit. If you mainly smoke at work, quit on the weekend, so you have a few days to adjust to the change. T = Tell family, friends, and co-workers that you plan to quit. Let your friends and family in on your plan to quit smoking and tell them you need their support and encouragement to stop. Look for a quit constance who wants to stop smoking as well. You can help each other get through the rough times. A = Anticipate and plan for the challenges you'll face while quitting. Most people who begin smoking again do so within the first 3 months. You can help yourself make it through by preparing ahead for common challenges, such as nicotine withdrawal and cigarette cravings. R = Remove cigarettes and other tobacco products from your home, car, and work. Throw away all your cigarettes (no emergency pack!), lighters, ashtrays, and matches. Wash your clothes and freshen up anything that smells like smoke. Shampoo your car, clean your drapes and carpet, and steam your furniture. T = Talk to your doctor about getting help to quit. Your doctor can prescribe medication to help with withdrawal and suggest other alternatives. If you can't see a doctor, you can get many products over the counter at your local pharmacy or grocery store, including the nicotine patch, nicotine lozenges, and nicotine gum. Resources for Quitting Smoking: <https://www.[place].gov/documents/[facility]/Q uit_Tobacco_Resources_for_patients_313480_7.pdf> Supplementation: Take recommended dosages of Vitamin D and Calcium to help fortify your bones and help them to heal. See your health maintenance packet for dosages and recommended levels. DVT/VTE prophylaxis: You will be given compression stockings from the hospital. Wear these daily for the first two weeks after surgery. You may take them off at night. You may be prescribed a medication to help thin your blood. Take this as directed. If you are not prescribed this medication, early and frequent ambulation has been shown to be the best prophylaxis to deep vein thrombosis and sequelae related to this event. Procedures: ACDF C3-C4 Patient Condition at Discharge: Good Plan - Discharge Summary Discharge Rx Participant: No New Discharge Prescriptions: New cefaDROXiL [Duricef] 500 mg PO Q12HR 5 Days #10 cap Cyclobenzaprine [Flexeril] 5 mg PO TID PRN #30 tablet PRN Reason: Muscle Spasm Sennosides/Docusate Sodium [Senna-S 8.6-50 mg Tablet] 1 each PO DAILY PRN #30 tablet PRN Reason: Constipation traMADol HCl [Ultram] 50 mg PO Q6H PRN #28 tab PRN Reason: Pain No Action Omalizumab [Xolair] 375 mg SQ Q14D Albuterol Sulfate [Proair Hfa] 2 puff INHALATION QID PRN PRN Reason: Shortness Of Breath Infliximab-Dyyb [Inflectra] 400 mg IV Q56D Fluticasone/Vilanterol [Breo Ellipta 200-25 Mcg INH] 1 puff INHALATION DAILY PRN PRN Reason: Wheezing Ibuprofen 600 mg PO TID PRN PRN Reason: Pain Clindamycin Topical Soln [Cleocin-T Topical Soln] 1 applic TOPICAL DAILY Fexofenadine HCl [[place] Allergy] 180 mg PO DAILY Fluticasone Nasal [place] [Flonase Nasal Beth[place]] 2 spray EA NOSTRIL DAILY Loratadine [Claritin] 10 mg PO ONCE Magnesium 500 mg PO DAILY PRN PRN Reason: hand/foot cramps Sucralfate [Carafate] 1 gm PO DAILY PRN PRN Reason: reflux Acetaminophen [Tylenol Extra Strength] 500 mg PO Q8HR PRN PRN Reason: Pain Discharge Medication List Omalizumab [Xolair] 375 mg SQ Q14D 11/25/14 [History] Albuterol Sulfate [Proair Hfa] 2 puff INHALATION QID PRN 05/31/17 [History] Fluticasone/Vilanterol [Breo Ellipta 200-25 Mcg INH] 1 puff INHALATION DAILY PRN 01/21/21 [History] Infliximab-Dyyb [Inflectra] 400 mg IV Q56D 01/21/21 [History] Ibuprofen 600 mg PO TID PRN 04/07/22 [History] Magnesium 500 mg PO DAILY PRN 04/28/22 [History] Sucralfate [Carafate] 1 gm PO DAILY PRN 04/28/22 [History] Acetaminophen [Tylenol Extra Strength] 500 mg PO Q8HR PRN 12/14/22 [History] Clindamycin Topical Soln [Cleocin-T Topical Soln] 1 applic TOPICAL DAILY 12/14/22 [History] Fexofenadine HCl [[place] Allergy] 180 mg PO DAILY 01/09/23 [History] Fluticasone Nasal [place] [Flonase Nasal [place]] 2 spray EA NOSTRIL DAILY 01/13/23 [History] Loratadine [Claritin] 10 mg PO ONCE 01/13/23 [History] Cyclobenzaprine [Flexeril] 5 mg PO TID PRN #30 tablet 01/14/23 [Rx] Sennosides/Docusate Sodium [Senna-S 8.6-50 mg Tablet] 1 each PO DAILY PRN #30 tablet 01/14/23 [Rx] cefaDROXiL [Duricef] 500 mg PO Q12HR 5 Days #10 cap 01/14/23 [Rx] traMADol HCl [Ultram] 50 mg PO Q6H PRN #28 tab 01/14/23 [Rx] Follow up Appointment(s)/Referral(s): Jeffrey Godinez DO [Doctor of Osteopathic Medicine] - 2 Weeks Activity/Diet/Wound Care/Special Instructions: Spine Discharge and Recovery Instructions Dressing: Leave your dressing in place for a total of 5 days post operatively. Then you may remove your dressing and leave open to air. Keep the area clean and if not able to keep area clean, then cover with sterile gauze and tape. Showering: You may shower 3 days after your procedure allowing soap and water to run over incision. Do not scrub. Do not soak. Blot dry. Follow up: Please confirm a follow up appointment with your surgeon 3 weeks post operatively. Please make an appointment to follow up with your PCP in 1-2 weeks after surgery for evaluation 3 phase, 3-week plan POST OP WEEKS 1-3 1. Lifting/carrying/pushing/pulling limited to less than 5 pounds. 2. Do not sit for longer than 15 minutes at one time. Get up and walk around. Prolonged sitting is NOT advised. If you lay down, see if you can tolerate laying down on you front (belly side) 3. Walk for periods of 15 minutes = 1 mile but no longer; do it multiple times times each day. 4. Ice your low back after activity. POST OP WEEKS 3-6 1. Lifting limited to less than 20 pounds. 2. Do not sit for longer than 30 minutes at a time. Frequently change positions. Use a sit-to stand workstation or take frequent breaks from sitting if you have returned to work. 3. Walk for 30 minutes each day. If possible, do these three or more times a day POST OP WEEKS 6+ At your 6-week appointment we will give you a physical therapy referral to focus on a core stabilization and strengthening program. You should also work on leg & buttock strengthening, hamstring & quadriceps stretching, and continue a low impact aerobic activity program such as swimming, walking, or riding a stationary bicycle. During the initial 6 weeks after your surgery, you are at the highest risk of re-injuring your spine. You should generally avoid BLTs (bending, lifting and twisting combination motions) and follow the above guidelines to reduce the chance of reinjury. You can anticipate post op appointments in our office at approximately 3 weeks and 6 weeks after your surgery. INCISION CARE: If your incision is not draining you do NOT need to cover it with a dressing. Keep your incision clean, dry and intact. In most cases, we apply skin glue, taylor or sutures to the incision at the time of surgery. This will be like a crust or have the appearance of a scab and will fall off in time on its own. The stitches or taylor need to be removed at 3 weeks post op appointment. You may begin to shower 3 days after surgery (this allows the glue to cooper well). However, please avoid scrubbing the incision site or peeling off any of the skin glue. This will ensure optimal healing of your incision. Also, during this time avoid soaking the incision area in water - this includes swimming pools, hot tubs or baths. No ointments, lotions or oils on the incision until your surgeon allows. Leave taylor, sutures or glue in place. Neurological dysfunction that comes on suddenly can also be a sign of a stroke. Below some common symptoms of a stroke are listed: B - balance difficulty such as sudden onset walking or leaning to one side - NEW E - eye problem such as sudden double vision or trouble seeing on one side - NEW F - Facial weakness or numbness on one side - NEW A - Arm or leg weakness or numbness on one side - NEW S - Slurred speech or difficulty with word finding - NEW T - Time is BRAIN! Call 911 as soon as you recognize these symptoms Diet: Consume a regular diet rich in vegetables and lean protein such as chicken or fish. You should consume in a ratio of approximately 20% fats|40% carbohydrates|40%protein. Vegetables, sweet potatoes, brown rice or quinoa are examples of good carbohydrates. Chips, white bread, cookies and sweets/sugar are examples of bad carbohydrates. Limit your bad carbs, go wild with good carbs. "Life's Simple 7" Guidelines as per [place] [employer] These will help you reclaim your life after surgery and core maker helper in your recovery, keeping in mind your restrictions. (1) Get Active. Physical activity can help people lose weight, control high blood pressure and cholesterol, feel emotionally better, and sleep better. (2) Control Cholesterol. Avoid a diet high in saturated fat, trans fat, & cholesterol. Limit whole milk & cream, ice cream, butter, egg yolks, processed meats (like sausage and hot dogs), and fatty meats. Choose healthy foods that are low in saturated fat, trans fat and cholesterol which include: Fruits and vegetables, fiber rich grain products (like whole grain pasta and brown rice), lean meat such as chicken, fish, nuts, seeds, and legumes. (3) Eat Better. Eat small portions. Shop at the grocery with a list and do not stray from it. Tips for a healthy diet include: Limit sodium intake to less than 1500mg daily, avoid prepackaged, processed, and fast foods, choose a diet rich in fruits, vegetables, and whole grain, high fiber foods, and limit saturated & cholesterol in your diet. (4) Manage Blood Pressure. If you have high blood pressure, you should have a c uff at home so that you can check your blood pressure regularly. Be sure you have a good cuff. An arm one is generally better than a wrist one. Bring the cuff to a doctor's appointment to validate that the measurements that your cuff are taking are accurate. Take your blood pressure twice daily when you are sitting down and relaxing. Record the numbers in a log and bring this log with you to your doctors' appointments. (5) Lose Weight if your BMI is above 25. A healthy BMI is between 19-25. To calculate Your BMI, you may use a Standard BMI Calculator on the NIH BMI website: <www.nhlbi.nih.gov/guidelines/obesity/BMI/bmicalc.htm>. Weigh oneself daily. If you are overweight, set a goal to lose weight. A pound a week loss if needed is a good target. (6) Reduce Blood Sugar. Limit foods and liquids with "added sugars." (Added sugars include sucrose, fructose, glucose, maltose, dextrose, high fructose corn syrup, corn syrup, concentrated fruit juice and honey). (7) Stop Smoking. If you smoke, quitting smoking is one of the best things that you can do for your health. Smoking increases your risk of heart attack, stroke, and peripheral vascular disease, which is a build-up of plaque in your arteries. Please discard all the cigarettes and lighters in your house. Have a plan for what you will do when you have the urge to smoke. Direct and second- hand smoke shortens your life as well as the lives of your family, friends and others around you. For your health and the health of those around you, please consider quitting! Proper Bending Body Mechanics: Maintain a wide stance with one foot slightly in front of the other. Keep your back straight. Bend utilizing the strength in your hips and knees. Do not bend at the waist. Maintain the lifted object at your waist-level close to your body. Avoid lifting weight that causes immediately pain or pain anywhere in the body afterwards. Smoking/Nicotine If there was ever one thing that you could do to increase your overall health, decrease your risk of cardiovascular problems by about 39% the second you make the choice, it is to STOP SMOKING. Your body's most instant gratification is the second you stop smoking. We have all heard the studies, read the articles but it is true, smoking is extremely bad for your overall health, and moreover it is detrimental to your bone health. Nicotine, IN ANY FORM, kills bone cells, prevents your body from healing fractures, and significantly prolongs healing after surgery. In spine surgery specifically, it increases your risk of not healing your bones to create a fusion and increases your risk of having a revision surgery due to this up to 60%. I know it is hard. I know it feels impossible. But there are ways. Take control of your life. We are here to help you through it. And when you are ready, ask us and we can direct you to help if you desire. Use the START Plan to Quit Smoking (please visit the Helpguide.org website listed below for more information): S = Set a quit date. Choose a date within the next 2 weeks, so you have enough time to prepare without losing your motivation to quit. If you mainly smoke at work, quit on the weekend, so you have a few days to adjust to the change. T = Tell family, friends, and co-workers that you plan to quit. Let your friends and family in on your plan to quit smoking and tell them you need their support and encouragement to stop. Look for a quit constance who wants to stop smoking as well. You can help each other get through the rough times. A = Anticipate and plan for the challenges you'll face while quitting. Most people who begin smoking again do so within the first 3 months. You can help yourself make it through by preparing ahead for common challenges, such as nicotine withdrawal and cigarette cravings. R = Remove cigarettes and other tobacco products from your home, car, and work. Throw away all your cigarettes (no emergency pack!), lighters, ashtrays, and matches. Wash your clothes and freshen up anything that smells like smoke. Shampoo your car, clean your drapes and carpet, and steam your furniture. T = Talk to your doctor about getting help to quit. Your doctor can prescribe medication to help with withdrawal and suggest other alternatives. If you can't see a doctor, you can get many products over the counter at your local pharmacy or grocery store, including the nicotine patch, nicotine lozenges, and nicotine gum. Resources for Quitting Smoking: <http s://www.[place].gov/documents/[facility]/Quit_Tobacco_Resources_for_patients_313480_7 .pdf> Supplementation: Take recommended dosages of Vitamin D and Calcium to help fortify your bones and help them to heal. See your health maintenance packet for dosages and recommended levels. DVT/VTE prophylaxis: You will be given compression stockings from the hospital. Wear these daily for the first two weeks after surgery. You may take them off at night. You may be prescribed a medication to help thin your blood. Take this as directed. If you are not prescribed this medication, early and frequent ambulation has been shown to be the best prophylaxis to deep vein thrombosis and sequelae related to this event. Discharge Disposition: HOME SELF-CARE
--- NOTE | 2023-01-14 12:32 | P.PN ---
Subjective Progress Note Date: 01/14/23 Pt s/e. Doing well this AM. States some hiccups overnight and some pain but otherwise doing well. Denies any N/V/SOB/CP/F/C at this time. States he is moving his arms and legs well and has been up to bathroom. Initially had trouble with urination but now has urinated on his own without issues. States some pain in neck and with swallowing but is tolerating soft diet at this time. Denies any other issues currently. Objective - Vital Signs Vital signs: Vital Signs Temp 98.6 F 01/14/23 07:21 Pulse 58 L 01/14/23 07:21 Resp 18 01/14/23 07:21 BP 148/77 01/14/23 07:21 Pulse Ox 95 01/14/23 07:21 FiO2 Intake & Output 01/13/23 01/14/23 01/14/23 18:59 06:59 18:59 Intake Total 2250 Output Total 370 20 Balance 1880 -20 Weight 80.6 kg Intake: IV 2250 Output: Drainage 10 20 Right Neck 10 20 Urine 300 Estimated Blood Loss 60 Other: Voiding Method Toilet Urinal # Voids 2 - Exam AOX3, NAD Mild TTP around incision site. Incision CDI. Drain removed <20 cc overnight. Some drainage from drain site on skin, no active bleeding. Swelling about the neck, normal post op 5/5 UE b/l Motor all major muscle groups 5/5 LE b/l motor all major muscle groups SILT C5-T1 and L2-S2 2/4 DTR all UE and LE Neg hoffmans Neg clonus Neg babinski 2/4 Distal pulses all UE and LE Compartments soft and compressive CNI-XII grossly intact Assessment and Plan Assessment: 73 yo male POD1 C3-4 ACDF doing well Plan: Appreciate consults and management -Cont with activity as tolerated with C collar in place. No BLTPP >5-10 lbs at this time. -C collar when up and about. No need while showering or sleeping -OK to shower over incision. Do not soak or submerge. Blot dry. Bandage as necessary. Leave glue on skin. -Pain control: Change to Tramadol for home as he did not tolerate NOrco. Cont with Gabapentin, Flexeril -GI ppx, senna, miralax -DVT ppx: Teds, SCDs, Early ambulation. OK to restart ASA 81 at home -Home health care. -CTshows hardware in accepatlb eposition with good height islam and alignment. -Drain removed. Cover site as needed -Plan for DC home today with home health and appropriate instructions and meds.
--- NOTE | 2023-01-17 07:12 | P.OP ---
Date of Procedure: 01/13/23 Preoperative Diagnosis: 1. 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 UE radiculopathy 3. UE weakness with paresthesia Postoperative Diagnosis: 1. 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 UE radiculopathy 3. UE weakness with paresthesia Procedure(s) Performed: 1. C3-4 ACDF (75966) 2. Application of non integrated anterior plate (18467) 3. Insertion of biomechanical device (90474) Use of IONM Implants: Javy cascadia cage Javy Hickory Plate MagnatOs Anesthesia: GETA Surgeon: Jeffrey Godinez Transportation Lead #1: Kristian Mcleod (Was present and assisted with all aspects of the case) Estimated Blood Loss (ml): 50 IV fluids (ml): 500 Urine output (ml): 0 Pathology: none sent Condition: stable Disposition: PACU Indications for Procedure: Buzz Lugo is a 72 year old male presenting for evaluation of gradual onset of UE radiculopathy, neck pain, arm pain that goes across his shoulder and into the neck as well as paresthesias. It was my pleasure to have seen and examined Mr. Lugo. In our visit today we have had a chance to go over subjective complaints, physical examination findings and treatments, including the natural course history without intervention and various interventional options. The imaging demonstrates C3-4 HNP which is most significant causing stenosis as well as spondylosis at this level with retrolisthesis. At C5-6 and C6-7 there are also HNP which are smaller causing mild to moderate stenosis. No myelomalacia at these levels but starting up at C3-4 . On physical exam, Mr. 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 I explained to the patient that as his condition progresses it could cause Continued issues, further neurological deterioration, pain, debility . At this time, based on the patients imaging and physical exam, I recommend surgery in the form or a: C3-4 ACDF . I discussed the risk and benefits of this procedure at length with Mr. Lugo. The patient agreed to consider pursuing the procedure mentioned above. Plan: 1. C3-4 anterior cervical discectomy and fusion Description of Procedure: C3-4 ACDF The patient was seen and examined in the preoperative area. All preoperative protocols were followed. Informed consent was obtained risks and benefits of the procedure were discussed at length. Risks including bleeding infection damage to the surrounding tissue and risk of reoperation were discussed with the patient. Risk of anesthesia up to and including was a discussed with the patient. These are outlined in the risk review. They were willing to accept these risks and all the risks of surgery. The patient was given a weight-based dose of antibiotics in the form of 2 g Ancef. The patient was seen and evaluated by the anesthesia team who deemed them fit for surgery. The site was marked, the patient was willing to proceed with the procedure. The patient was transferred to the operative suite by the Department of anesthesia. They were then drifted off to sleep by the department anesthesia and GETA was performed. The patient tolerated this well. Talbert catheter was placed by nursing staff, a-traumatically. Once confirmation of lines and ventilation the patient was transferred to a Supine Zhen table very carefully. All bony prominences including wrists, elbows, axilla, chest, hips, and thighs, and feet were padded very well. Special attention was paid to the genitalia, and these were padded accordingly. SCDs were placed on bilateral lower extremities and were connected. Arms were well padded and placed at their side thumbs up. Once in position, again we confirmed good ventilation capabilities and that lines were running appropriately. The patients Cervical spine was then exposed. 1010s were placed outlining the incision site. Standard alcohol was used to clean the incision site and allowed to dry. C-arm was used to bio-salvador the patient and confirm level for incision which was marked with a skin marker. Operative briefing was performed with all teams and everyone in agreement to proceed. The patient was then prepped and draped in a normal sterile fashion. Timeout was then performed, and all parties agreed with the procedure to be performed. Transverse skin incision was then made on the right side of the patients neck 3 cm and dissection taken down to the platysma which was split transversely. Sub platysma flap was made, and interval identified between SCM and medial structures. Omohyoid was visualized and protected. Blunt dissection taken down to the anterior cervical facia which was identified. Blunt prob was then placed and lateral image taken which confirmed levels for operation. These levels were then marked with a bovi. Subperiosteal dissection of the longissimus muscles were then done over these levels identifying uncovertebral joints bilaterally. Retractor was then placed deep to these muscles and held in place with a bed arm. Newville pins were placed into C3 and C4 and gentle distraction taken out over the levels. Verenice rongure used to remove disc material. Operating microscope brought in for visualization. Complete discectomy performed at this level with curette, rongure and pituitary. High speed ortiz used to remove osteophytes anteriorly and posteriorly until PLL was identified. 6-0 up curette then used to identify the canal and resect the PLL. 2-0 and 3-0 Kerrison used then to remove PLL and disc herniation and performed b/l foraminotomies. Once good decompression accomplished, meticulous hemostasis was performed. Sizers were then placed under lateral fluoroscopy until the desired height and lordosis. Cage was then selected, packed with autograft and allograft and placed under lateral imaging. Once in good position it was tested and stable. Motors run before and after cage placement were stable. The wound was irrigated, and autograft placed lateral to the cage anteriorly for fusion. Newville pin was then removed from C3 and C4 and bone wax placed in their void. A separate, non-integrated plate was then selected and sized under lateral image. The plate was then placed with screws. Fixed screws drilled into C4 b/l and screws placed. Then screw placed into C3. Good purchace of all screws obtained and the locking mechanism was set. Final AP and lateral images taken confirmed good placement of hardware and good reduction and sabianist of height. The wound was then irrigated copiously with NSS. Surgicel placed deep in the wound. Layered closure then performed with 3-0 Vicryl in the platysma and sub-Q tissue. 4-0 Strata fix in the subcuticular tissue. The wound was then cleaned, and dried and skin glue placed. Once glue dried an Opifoam was placed. The patient was then transferred back to their hospital bed a-traumatically. The drain continued to hold suction. They were placed in a soft collar. They were then awakened by the department of anesthesia having tolerated the procedure well without complications.
== END 2023-01-14 12:08 | disposition home or self-care (01) ==
LOC: OR 09:16 → 5NMEDONC 13:13 → OR 01-14 12:08
PROVIDERS: ATTEND Orthopaedic Surgery
DX: M50.11 Cervical disc disorder with radiculopathy, high cervical region (principal); M50.122 Cervical disc disorder at C5-C6 level with radiculopathy; M50.123 Cervical disc disorder at C6-C7 level with radiculopathy; M48.02 Spinal stenosis, cervical region; M47.22 Other spondylosis with radiculopathy, cervical region; M43.12 Spondylolisthesis, cervical region; J45.909 Unspecified asthma, uncomplicated; K21.9 Gastro-esophageal reflux disease without esophagitis; I49.3 Ventricular premature depolarization; M19.90 Unspecified osteoarthritis, unspecified site; J18.9 Pneumonia, unspecified organism; G47.9 Sleep disorder, unspecified; F41.9 Anxiety disorder, unspecified; F32.A Depression, unspecified; Z87.19 Personal history of other diseases of the digestive system; Z98.890 Other specified postprocedural states; Z87.891 Personal history of nicotine dependence; Z82.49 Family history of ischemic heart disease and other diseases of the circulatory system; Z80.8 Family history of malignant neoplasm of other organs or systems; Z83.49 Family history of other endocrine, nutritional and metabolic diseases; Z81.8 Family history of other mental and behavioral disorders; Z83.79 Family history of other diseases of the digestive system; Z79.51 Long term (current) use of inhaled steroids; Z79.899 Other long term (current) drug therapy; Z79.1 Long term (current) use of non-steroidal anti-inflammatories (NSAID); Z88.1 Allergy status to other antibiotic agents; Z88.8 Allergy status to other drugs, medicaments and biological substances; Z88.6 Allergy status to analgesic agent; Z91.010 Allergy to peanuts; Z91.048 Other nonmedicinal substance allergy status; Z88.0 Allergy status to penicillin; Z91.013 Allergy to seafood
CPT/HCPCS: 86900; 86901; 86850; 72040; 72125; 22551; 22845; 22853; L0120; C1713; J2250; J0330; J0360; J1100; J2310; J0690 ×2; J2405; J3010; J1170 ×3; J2704; J2001

== ENCOUNTER → 2023-02-08 | Outpatient (CLI) | payer MEDICARE ==
[~2023-02-08] MED LIST changes: -ACETAMINOPHEN TAB 500 MG TAB PO PRN; -DEXAMETHASONE SOD PHOSPHATE 4 MG/ML 1 ML VIAL IV ONE; -GABAPENTIN 300 MG CAP PO PRN; +HYDROCORTISONE SUCCINATE 100 MG/2 ML VIAL IVP NR; +INFLIXIMAB-DYYB 400 MG in SODIUM CHLORIDE 0.9% 210 ML IV NR; -LIDOCAINE 1% (10MG/ML) FOR IV START INTRADERMA PRN; -ONDANSETRON 4 MG/2 ML VIAL IVP PRN; +SODIUM CHLORIDE 0.9% 500 ML 500 ML in EMPTY BAG 1 BAG IV PRN; -TRANEXAMIC ACID IN NACL,ISO-OS 1,000 MG in SALINE 1 100ML.BAG IVPB PRN
[2023-02-08 13:30] VITALS: RESP 16; TEMP 98
[2023-02-08 14:22] VITALS: BP 117/78; PULSE 63
== END ==
LOC: PROCWHC3 13:19
PROVIDERS: ATTEND Internal Medicine Gastroenterology
DX: K51.90 Ulcerative colitis, unspecified, without complications (principal)
CPT/HCPCS: 96375; 96413; 96415; J1720; Q5103

== ENCOUNTER → 2023-04-05 | Outpatient (CLI) | payer MEDICARE ==
[2023-04-05 11:35] VITALS: RESP 16; TEMP 97.7
[2023-04-05 13:11] VITALS: BP 120/79; PULSE 58
== END ==
LOC: PROCWHC3 11:06
PROVIDERS: ATTEND Internal Medicine Gastroenterology
DX: K51.90 Ulcerative colitis, unspecified, without complications (principal)
CPT/HCPCS: 96375; 96413; 96415; J1720; Q5103

== ENCOUNTER 2023-05-07 09:41 | Emergency (ER) | payer MEDICARE ==
[2023-05-07 09:47] VITALS: TEMP 98.9
[2023-05-07] MEDS ORDERED: IPRATROPIUM-ALBUTEROL 3 ML NEB INHALATION STA (10:12)
[2023-05-07] MEDS ORDERED: DEXAMETHASONE SOD PHOSPHATE 10 MG/ML 1 ML VIAL IM STA (10:13)
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
[2023-05-07 12:01] VITALS: BP 118/78; PULSE 78; RESP 20
== END 2023-05-07 12:01 | disposition home or self-care (01) ==
LOC: EC 09:41
DX: J45.901 Unspecified asthma with (acute) exacerbation (principal); J06.9 Acute upper respiratory infection, unspecified; F12.90 Cannabis use, unspecified, uncomplicated; Z87.891 Personal history of nicotine dependence; Z79.51 Long term (current) use of inhaled steroids; Z79.899 Other long term (current) drug therapy; Z88.0 Allergy status to penicillin; Z88.1 Allergy status to other antibiotic agents; Z88.5 Allergy status to narcotic agent; Z88.6 Allergy status to analgesic agent; Z91.010 Allergy to peanuts; Z91.013 Allergy to seafood; Z88.8 Allergy status to other drugs, medicaments and biological substances; Z91.041 Radiographic dye allergy status
CPT/HCPCS: 94640; 99283; 96372; J1100

== ENCOUNTER → 2023-10-18 | Outpatient (CLI) | payer MEDICARE ==
[2023-10-18 11:59] LABS: Basophils # (A) 0.1 k/uL (0-0.2); Basophils % (A) 1 %; Eosinophils # (A) 0.1 k/uL (0-0.7); Eosinophils % (A) 2 %; HCT 44.8 % (39.0-53.0); HGB 15.3 gm/dL (13.0-17.5); Lymphocytes # (A) 3.8 k/uL (1.0-4.8); Lymphocytes % (A) 40 %; MCH 31.2 pg (25.0-35.0); MCHC 34.1 g/dL (31.0-37.0); MCV 91.6 fL (80.0-100.0); Mean Platelet Volume 8.4; Monocytes # (A) 0.6 k/uL (0-1.0); Monocytes % (A) 6 %; Neutrophils # (A) 4.8 k/uL (1.3-7.7); Neutrophils % (A) 51 %; Platelet Count 203 k/uL (150-450); RBC 4.89 m/uL (4.30-5.90); RDW 11.8 % (11.5-15.5); WBC 9.5 k/uL (3.8-10.6)
[2023-10-18 12:03] VITALS: PULSE 74; RESP 16; TEMP 98.3
[2023-10-18 12:09] LABS: ALT 26 U/L (4-49); AST 23 U/L (17-59); African American GFR (CKD) 85 (>60 ml/min/1.73 sqM); Albumin 4.4 g/dL (3.5-5.0); Alkaline Phosphatase 43 U/L (38-126); Anion Gap 11 mmol/L; Blood Urea Nitrogen 27 mg/dL (9-20); Calcium 9.2 mg/dL (8.4-10.2); Carbon Dioxide 26 mmol/L (22-30); Chloride 105 mmol/L (98-107); Glucose 85 mg/dL (74-99); Non-African American GFR(CKD) 74 (>60 ml/min/1.73 sqM); Potassium 3.9 mmol/L (3.5-5.1); Sodium 142 mmol/L (137-145); Total Bilirubin 0.7 mg/dL (0.2-1.3); Total Protein 7.6 g/dL (6.3-8.2)
[2023-10-18 13:42] VITALS: BP 132/85
== END ==
LOC: PROCWHC3 11:36
PROVIDERS: ATTEND Internal Medicine Gastroenterology
DX: K51.90 Ulcerative colitis, unspecified, without complications (principal)
CPT/HCPCS: 80053; 85025; 96375; 96413; 96415; J1720; Q5103

== ENCOUNTER → 2023-12-27 | Outpatient (CLI) | payer MEDICARE ==
[2023-12-27] MEDS: SODIUM CHLORIDE 0.9% 500 ML 500 ML in EMPTY BAG 1 BAG IV PRN (11:56)
[2023-12-27] MEDS: HYDROCORTISONE SUCCINATE 100 MG/2 ML VIAL IVP NR (11:56)
[2023-12-27 12:08] VITALS: RESP 16; TEMP 97.6
[2023-12-27] MEDS: INFLIXIMAB-DYYB 400 MG in SODIUM CHLORIDE 0.9% 210 ML IV NR (12:25)
[2023-12-27 13:47] VITALS: BP 131/82; PULSE 60
== END ==
LOC: PROCWHC3 12-13 11:26
PROVIDERS: ATTEND Internal Medicine Gastroenterology
DX: K51.90 Ulcerative colitis, unspecified, without complications (principal)
CPT/HCPCS: 96375; 96413; 96415; J1720; Q5103

== ENCOUNTER → 2024-02-21 | Outpatient (CLI) | payer MEDICARE ==
[2024-02-21 12:27] VITALS: RESP 16; TEMP 97.7
[2024-02-21] MEDS: SODIUM CHLORIDE 0.9% 500 ML 500 ML in EMPTY BAG 1 BAG IV PRN (12:29)
[2024-02-21] MEDS: HYDROCORTISONE SUCCINATE 100 MG/2 ML VIAL IVP NR (12:30)
[2024-02-21] MEDS: INFLIXIMAB-DYYB 400 MG in SODIUM CHLORIDE 0.9% 210 ML IV NR (12:32)
[2024-02-21 13:56] VITALS: BP 119/68; PULSE 56
== END ==
LOC: PROCWHC3 12:03
PROVIDERS: ATTEND Internal Medicine Gastroenterology
DX: K51.90 Ulcerative colitis, unspecified, without complications (principal)
CPT/HCPCS: 96375; 96413; 96415; J1720; Q5103

== ENCOUNTER → 2024-03-06 | Outpatient (CLI) | payer MEDICARE ==
[2024-03-06 18:57] LABS: Basophils # (A) 0.07 X 10*3/uL (0.00-0.10); Basophils % (A) 1.1 %; Eosinophils # (A) 0.27 X 10*3/uL (0.04-0.35); Eosinophils % (A) 4.1 %; HCT 48.2 % (39.6-50.0); HGB 15.5 g/dL (13.0-17.0); Lymphocytes # (A) 2.49 X 10*3/uL (0.90-5.00); Lymphocytes % (A) 37.8 %; MCH 30.9 pg (27.0-32.0); MCHC 32.2 g/dL (32.0-37.0); Mean Platelet Volume 11.7 FL (9.5-12.2); Monocytes # (A) 0.67 X 10*3/uL (0.20-1.00); Monocytes % (A) 10.2 %; NRBC Per 100 WBC 0 X 10*3/uL (0.00-0.01); Neutrophils # (A) 3.07 X 10*3/uL (1.80-7.70); Neutrophils % (A) 46.6 %; Platelet Count 230 X 10*3/uL (140-440); RBC 5.02 X 10*6/uL (4.40-5.60); WBC 6.58 X 10*3/uL (4.50-10.00)
[2024-03-06 19:22] LABS: ALT 44 U/L (10-49); AST 32 U/L (14-35); Albumin 4.9 g/dL (3.8-4.9); Albumin/Globulin Ratio 1.75 Ratio (1.60-3.17); Alkaline Phosphatase 42 U/L (41-126); BUN/Creat Ratio 18.17 Ratio (12.00-20.00); Blood Urea Nitrogen 21.8 mg/dL (9.0-27.0); Calcium 9.8 mg/dL (8.7-10.3); Carbon Dioxide 26.5 mmol/L (21.6-31.8); Chloride 106 mmol/L (96-109); Globulin 2.8 g/dL (1.6-3.3); Glucose 105 mg/dL (70-110); Sodium 144 mmol/L (135-145); Total Bilirubin 0.8 mg/dL (0.3-1.2); Total Protein 7.7 g/dL (6.2-8.2)
== END | disposition home or self-care (01) ==
LOC: LABWHC1 12:35
PROVIDERS: ATTEND Internal Medicine Gastroenterology
DX: K51.90 Ulcerative colitis, unspecified, without complications (principal)
CPT/HCPCS: 36415; 80053; 85025

== ENCOUNTER → 2024-05-01 | Outpatient (CLI) | payer MEDICARE ==
[~2024-05-01] MED LIST changes: -HYDROCORTISONE SUCCINATE 100 MG/2 ML VIAL IVP NR; -INFLIXIMAB-DYYB 400 MG in SODIUM CHLORIDE 0.9% 210 ML IV NR
[2024-05-01 10:58] VITALS: TEMP 98.1
[2024-05-01] MEDS: HYDROCORTISONE SUCCINATE 100 MG/2 ML VIAL IVP NR (11:00)
[2024-05-01] MEDS: SODIUM CHLORIDE 0.9% 500 ML 500 ML in EMPTY BAG 1 BAG IV PRN (11:05)
[2024-05-01] MEDS: INFLIXIMAB-DYYB 400 MG in SODIUM CHLORIDE 0.9% 210 ML IV NR (11:05)
[2024-05-01 11:20] LABS: Basophils # (A) 0.1 k/uL (0-0.2); Basophils % (A) 1 %; Eosinophils # (A) 0.5 k/uL (0-0.7); Eosinophils % (A) 7 %; HCT 43.1 % (39.0-53.0); HGB 14.5 gm/dL (13.0-17.5); Lymphocytes # (A) 1.7 k/uL (1.0-4.8); Lymphocytes % (A) 24 %; MCH 31.5 pg (25.0-35.0); MCHC 33.7 g/dL (31.0-37.0); MCV 93.4 fL (80.0-100.0); Mean Platelet Volume 9.5; Monocytes # (A) 0.4 k/uL (0-1.0); Monocytes % (A) 6 %; Neutrophils # (A) 4.3 k/uL (1.3-7.7); Neutrophils % (A) 60 %; Platelet Count 211 k/uL (150-450); RBC 4.61 m/uL (4.30-5.90); RDW 12.1 % (11.5-15.5); WBC 7.2 k/uL (3.8-10.6)
[2024-05-01 11:25] LABS: ALT 28 U/L (4-49); AST 35 U/L (17-59); African American GFR (CKD) 78 (>60 ml/min/1.73 sqM); Albumin 4.4 g/dL (3.5-5.0); Alkaline Phosphatase 43 U/L (38-126); Anion Gap 6 mmol/L; Blood Urea Nitrogen 27 mg/dL (9-20); Carbon Dioxide 26 mmol/L (22-30); Chloride 109 mmol/L (98-107); Glucose 169 mg/dL (74-99); Non-African American GFR(CKD) 67 (>60 ml/min/1.73 sqM); Potassium 4.3 mmol/L (3.5-5.1); Sodium 141 mmol/L (137-145); Total Protein 7.4 g/dL (6.3-8.2)
[2024-05-01 12:14] VITALS: BP 116/75; PULSE 59; RESP 14
== END ==
LOC: PROCWHC3 10:38
PROVIDERS: ATTEND Internal Medicine Gastroenterology
DX: K51.90 Ulcerative colitis, unspecified, without complications (principal)
CPT/HCPCS: 80053; 85025; 96375; 96413; 96415; J1720; Q5103

== ENCOUNTER → 2024-06-26 | Outpatient (CLI) | payer MEDICARE ==
[2024-06-26 10:22] VITALS: RESP 16; TEMP 97.8
[2024-06-26] MEDS: SODIUM CHLORIDE 0.9% 500 ML 500 ML in EMPTY BAG 1 BAG IV PRN (10:22)
[2024-06-26] MEDS: HYDROCORTISONE SUCCINATE 100 MG/2 ML VIAL IVP NR (10:23)
[2024-06-26] MEDS: INFLIXIMAB-DYYB 400 MG in SODIUM CHLORIDE 0.9% 250 ML IV NR (10:27)
[2024-06-26 12:00] VITALS: BP 134/76; PULSE 52
== END ==
LOC: PROCWHC3 09:54
PROVIDERS: ATTEND Internal Medicine Gastroenterology
DX: K51.90 Ulcerative colitis, unspecified, without complications (principal)
CPT/HCPCS: 96375; 96413; 96415

== ENCOUNTER 2024-08-06 11:14 | Emergency (ER) | payer MEDICARE ==
[2024-08-06 11:24] VITALS: TEMP 97.7
[2024-08-06 12:58] LABS: Basophils % (A) 0 %; Eosinophils # (A) 0.1 k/uL (0-0.7); Eosinophils % (A) 1 %; HCT 41.1 % (39.0-53.0); Lymphocytes # (A) 1.4 k/uL (1.0-4.8); Lymphocytes % (A) 13 %; MCH 31.3 pg (25.0-35.0); MCV 92.1 fL (80.0-100.0); Mean Platelet Volume 8.4; Monocytes # (A) 0.4 k/uL (0-1.0); Monocytes % (A) 4 %; Neutrophils # (A) 8.5 k/uL (1.3-7.7); Neutrophils % (A) 81 %; Platelet Count 213 k/uL (150-450); RBC 4.46 m/uL (4.30-5.90); WBC 10.5 k/uL (3.8-10.6)
[2024-08-06] MEDS: methylPREDNISolone SOD SUCCI 125 MG/2 ML VIAL IV STA (12:58)
[2024-08-06] MEDS: IPRATROPIUM-ALBUTEROL 3 ML NEB INHALATION STA (13:00)
[2024-08-06 13:07] LABS: ALT 30 U/L (4-49); AST 26 U/L (17-59); African American GFR (CKD) 88 (>60 ml/min/1.73 sqM); Albumin 4.5 g/dL (3.5-5.0); Alkaline Phosphatase 41 U/L (38-126); Anion Gap 6 mmol/L; Blood Urea Nitrogen 30 mg/dL (9-20); Calcium 9.3 mg/dL (8.4-10.2); Carbon Dioxide 25 mmol/L (22-30); Chloride 108 mmol/L (98-107); Glucose 152 mg/dL (74-99); Non-African American GFR(CKD) 76 (>60 ml/min/1.73 sqM); Potassium 4.2 mmol/L (3.5-5.1); Sodium 139 mmol/L (137-145); Total Bilirubin 0.9 mg/dL (0.2-1.3); Total Protein 7.5 g/dL (6.3-8.2)
--- NOTE | 2024-08-06 13:23 | XR ---
EXAMINATION TYPE: XR chest 2V DATE OF EXAM: 08/06/2024 1:12 PM COMPARISON: Chest radiographs from 05/22/2023 TECHNIQUE: XR chest 2V Frontal and lateral views of the chest. CLINICAL INDICATION:Male, 74 years old with history of cough; FINDINGS: Lungs/Pleura: There is no evidence of pleural effusion, focal consolidation, or pneumothorax. Pulmonary vascularity: Unremarkable. Heart/mediastinum: Cardiomediastinal silhouette is unremarkable. Musculoskeletal: No acute osseous pathology. Cervical fusion hardware. IMPRESSION: No acute cardiopulmonary disease/process. [facility], , 08/06/2024 1:21 PM
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
[2024-08-06 14:43] VITALS: BP 172/90; PULSE 64; RESP 18
== END 2024-08-06 14:43 | disposition home or self-care (01) ==
LOC: EC 11:14 → SUPCPDRO 11:14 → EC 14:43
CPT/HCPCS: 36415; 71046; 80053; 85025; 87636; 93005; 94640; 96374; 99284; 99285

== ENCOUNTER → 2024-08-27 | Outpatient (CLI) | payer MEDICARE ==
[2024-08-27 18:25] LABS: Basophils # (A) 0.02 X 10*3/uL (0.00-0.10); Basophils % (A) 0.4 %; Eosinophils # (A) 0.15 X 10*3/uL (0.04-0.35); Eosinophils % (A) 2.7 %; HGB 13.6 g/dL (13.0-17.0); Lymphocytes # (A) 1.52 X 10*3/uL (0.90-5.00); Lymphocytes % (A) 27.3 %; MCH 30.4 pg (27.0-32.0); MCHC 32.4 g/dL (32.0-37.0); MCV 93.8 FL (80.0-97.0); Mean Platelet Volume 10.9 FL (9.5-12.2); Monocytes # (A) 0.65 X 10*3/uL (0.20-1.00); Monocytes % (A) 11.7 %; NRBC Per 100 WBC 0 X 10*3/uL (0.00-0.01); Neutrophils % (A) 57.5 %; Platelet Count 200 X 10*3/uL (140-440); RBC 4.48 X 10*6/uL (4.40-5.60); RDW 12.4 % (11.5-14.5); WBC 5.56 X 10*3/uL (4.50-10.00)
[2024-08-27 20:11] LABS: ALT 41 U/L (10-49); AST 25 U/L (14-35); Albumin 4.4 g/dL (3.8-4.9); Alkaline Phosphatase 36 U/L (41-126); BUN/Creat Ratio 17.92 Ratio (12.00-20.00); Blood Urea Nitrogen 21.5 mg/dL (9.0-27.0); Calcium 8.9 mg/dL (8.7-10.3); Carbon Dioxide 25.3 mmol/L (21.6-31.8); Chloride 106 mmol/L (96-109); Chol/HDL Ratio 2.97 Ratio; Globulin 2.2 g/dL (1.6-3.3); Glucose 128 mg/dL (70-110); LDL Cholesterol,Calculated 89.3 mg/dL (0.0-131.0); Potassium 4.1 mmol/L (3.5-5.5); Sodium 143 mmol/L (135-145); Total Bilirubin 0.7 mg/dL (0.3-1.2); Total Protein 6.6 g/dL (6.2-8.2)
[2024-08-27 20:12] LABS: Prostate Specific Antigen 0.97 ng/mL (0.000-6.500)
[2024-08-27 23:01] LABS: Magnesium 1.9 mg/dL (1.5-2.4)
== END | disposition home or self-care (01) ==
LOC: LABWHC1 15:41
PROVIDERS: ATTEND Internal Medicine
CPT/HCPCS: 36415; 80053; 80061; 83036; 83735; 84153; 84443; 85025

== ENCOUNTER → 2024-09-03 | Outpatient (CLI) | payer MEDICARE ==
[2024-09-03 11:12] VITALS: RESP 16; TEMP 97.9
[2024-09-03] MEDS: SODIUM CHLORIDE 0.9% 250 ML in EMPTY BAG 1 BAG IV PRN (11:13)
[2024-09-03] MEDS: HYDROCORTISONE SUCCINATE 100 MG/2 ML VIAL IVP NR (11:15)
[2024-09-03] MEDS: INFLIXIMAB-DYYB 400 MG in SODIUM CHLORIDE 0.9% 250 ML IV NR (11:44)
[2024-09-03 12:52] VITALS: BP 101/65; PULSE 52
== END ==
LOC: PROCWHC3 11:04
PROVIDERS: ATTEND Internal Medicine Gastroenterology
DX: K51.90 Ulcerative colitis, unspecified, without complications (principal)
CPT/HCPCS: 96375; 96413; 96415; J1720; Q5103

== ENCOUNTER → 2024-09-17 | Outpatient (CLI) | payer MEDICARE ==
--- NOTE | 2024-09-17 13:31 | CTL ---
EXAMINATION TYPE: CT Low Dose Lung DATE OF EXAM ORDERED: 09/17/2024 COMPARISON: Chest radiograph 08/06/2024 CLINICAL INDICATION: Male, 74 years old with history of Z12.2 Z87.891 Screening/Personal HX of nicoti ne dependence; PHH, former smoker 1ppd x45 years. quit x13 years. ago, Lung cancer screening, History of Smoking/tobacco use. TECHNIQUE: Low dose computed tomography scan was performed through the chest at 1 mm thick sections a nd reconstructed images in multiple planes at 1 mm and [address] DLP: 128.[address] CTDI: 3.3 mGy Automated exposure control for dose reduction was used. CT DIAGNOSTIC QUALITY: Satisfactory FINDINGS: Nodules: Posterior right upper lobe solid 1.1 cm nodular density (series 6, image 16). Lateral right middle lobe tree-in-bud nodular opacities (series 6, image 34). LUNGS: COPD: Severity: None Fibrosis: Severity: None Lymph nodes: None Other findings: None RIGHT PLEURAL SPACE: Effusion: None Calcification: None Thickening: None Pneumothorax: None LEFT PLEURAL SPACE: Effusion: None Calcification: None Thickening: None Pneumothorax: None HEART: Heart Size: Normal Coronary Calcification: Small Pericardial Effusion: None OTHER FINDINGS: Upper abdomen: Bilateral nonobstructive renal calculi measuring up to 4 mm. Diverticulosis of the dis clyde visualized transverse colon. Bony thorax: None Supraclavicular region: None Other: Mild bilateral gynecomastia. IMPRESSION: 1. Solid right upper lobe 1.1 cm nodular density. Further evaluation with PET/CT is recommended. 2. Peripheral right middle lobe tree-in-bud nodular opacities likely representing bronchiolitis from infectious/inflammatory process. CT LUNG RAD AND CT CHEST RECOMMENDATION: Lung-Rad 4A Suspicious: Follow-up 3 month LDCT or PET/CT may be used when there is a > 8 mm solid component. S Modifier (other clinically significant findings): None [facility], , 09/17/2024 1:29 PM
--- NOTE | 2024-09-17 17:20 | MR ---
EXAMINATION TYPE: MR brain wo/w con DATE OF EXAM: 09/17/2024 12:59 PM COMPARISON: None. CLINICAL INDICATION: Male, 74 years old with history of H53.9 VISION CHANGES; PHH, Visual Aura TECHNIQUE: Multi planar, multi sequence imaging was performed through the brain including: T1, T2, In version recovery, susceptibility weighted imaging and gradient echo imaging and Diffusion weighted im aging. The patient was then given intravenous contrast and multi planar, T1 fat-saturation images wer e obtained. IV Contrast: 8 mL Gadobutrol FINDINGS: The truong-white junctions, ventricular system, basal cisterns appear unremarkable. Diffusion-weighted imaging shows no evidence of restricted diffusion to suggest acute/subacute infarct. Intracranial ar terial flow voids are maintained. Midline structures show no abnormality. Scattered foci of high T2 s ignal intensity are seen within the periventricular white matter. The susceptibility weighted images do not reveal any evidence for micro-hemorrhage. After administration of gadolinium, no abnormal enha ncement is seen. The bone marrow signal is within normal limits. Paranasal sinuses and mastoid air cells: No significant paranasal sinus disease. Visualized orbits: Orbital contents are intact. IMPRESSION: 1. No evidence of intracranial mass, acute/subacute infarct, or abnormal enhancement. 2. Nonspecific white matter changes, likely related to small vessel ischemic disease. [facility], , 09/17/2024 5:18 PM
== END | disposition home or self-care (01) ==
LOC: RADMRIMAIN 11:33
PROVIDERS: ATTEND Internal Medicine
DX: Z12.2 Encounter for screening for malignant neoplasm of respiratory organs (principal); H53.9 Unspecified visual disturbance; Z87.891 Personal history of nicotine dependence; J98.4 Other disorders of lung; N62 Hypertrophy of breast; N20.0 Calculus of kidney; K57.30 Diverticulosis of large intestine without perforation or abscess without bleeding
CPT/HCPCS: 71271; 70553; A9585

== ENCOUNTER → 2024-09-20 | Outpatient (CLI) | payer MEDICARE ==
--- NOTE | 2024-09-22 16:34 | PE ---
EXAMINATION TYPE: PET CT fusion skull to thigh DATE OF EXAM: 09/20/2024 CLINICAL INDICATION:Male, 74 years old with history of R91.1 LUNG NODULE; right upper lobe lung nodul e. TECHNIQUE: Following the intravenous administration of 10.2 mCi of F-18 FDG, whole body images are performed from the skull base to the midthigh. Images are reviewed on the computer in the coronal, a xial, and sagittal planes. Reconstructed rotating images are created on independent workstation and reviewed on the computer. A non-contrast CT is performed in conjunction with the PET scan. Glucose level 85 mg/dL CT DLP: 573 mGycm, Automated exposure control for dose reduction was used. COMPARISON: CT 01/21/2021, PET/CT None, MRI: None FINDINGS: Mediastinal SUV mean is 2.6. Hepatic parenchyma SUV mean is 2.8. SKULL BASE AND NECK: CHEST, MEDIASTINUM, AND HILAR REGION: Right upper lung a millimeter pulmonary nodule Max SUV 3.2. There is a groundglass halo thought to be around portions of this nodule.r satellite nodule also may be present measuring 3 mm more laterally. ABDOMEN AND PELVIS: No suspicious radiotracer activity. MUSCULOSKELETAL STRUCTURES: No suspicious radiotracer activity. OTHER CT: * Prostatomegaly. * Colonic diverticulosis. * Left simple appearing renal cysts. * IMPRESSION: Right upper lung pulmonary nodule measuring 8 mm mild uptake concerning for malignancy until proven o therwise. [facility], , 09/22/2024 4:32 PM
== END | disposition home or self-care (01) ==
LOC: RADPETMAIN 07:52
PROVIDERS: ATTEND Internal Medicine Critical Care Medicine
DX: R91.1 Solitary pulmonary nodule (principal); N28.1 Cyst of kidney, acquired; K57.30 Diverticulosis of large intestine without perforation or abscess without bleeding
CPT/HCPCS: 78815; A9552

== ENCOUNTER → 2024-10-28 | Outpatient (CLI) | payer MEDICARE ==
[~2024-10-28] MED LIST changes: +SODIUM CHLORIDE 0.9% 250 ML in EMPTY BAG 1 BAG IV PRN; -SODIUM CHLORIDE 0.9% 500 ML 500 ML in EMPTY BAG 1 BAG IV PRN
[2024-10-28 09:49] VITALS: TEMP 97.7
[2024-10-28] MEDS: SODIUM CHLORIDE 0.9% 500 ML 500 ML in EMPTY BAG 1 BAG IV PRN (09:50)
[2024-10-28] MEDS: HYDROCORTISONE SUCCINATE 100 MG/2 ML VIAL IVP NR (09:50)
[2024-10-28] MEDS: INFLIXIMAB-DYYB 400 MG in SODIUM CHLORIDE 0.9% 250 ML IV NR (10:21)
[2024-10-28 10:41] VITALS: RESP 16
[2024-10-28 11:30] VITALS: BP 112/72; PULSE 55
== END ==
LOC: PROCWHC3 09:33
PROVIDERS: ATTEND Internal Medicine Gastroenterology
DX: K51.90 Ulcerative colitis, unspecified, without complications (principal)
CPT/HCPCS: 96375; 96413; 96415; J1720; Q5103

== ENCOUNTER → 2024-11-13 | Day surgery (SDC) | payer MEDICARE ==
[2024-11-13 12:02] VITALS: BP 128/71; PULSE 66; RESP 14; TEMP 98.9
[2024-11-13 12:08] LABS: Basophils % (A) 0 %; Eosinophils % (A) 1 %; HCT 41.7 % (39.0-53.0); HGB 13.8 gm/dL (13.0-17.5); Lymphocytes # (A) 1.1 k/uL (1.0-4.8); Lymphocytes % (A) 11 %; MCH 31.1 pg (25.0-35.0); MCHC 33.2 g/dL (31.0-37.0); MCV 93.6 fL (80.0-100.0); Mean Platelet Volume 8.2; Monocytes # (A) 0.3 k/uL (0-1.0); Monocytes % (A) 3 %; Neutrophils # (A) 8.2 k/uL (1.3-7.7); Neutrophils % (A) 85 %; Platelet Count 251 k/uL (150-450); RBC 4.46 m/uL (4.30-5.90); RDW 12.1 % (11.5-15.5); WBC 9.7 k/uL (3.8-10.6)
[2024-11-13 12:18] LABS: African American GFR (CKD) 75 (>60 ml/min/1.73 sqM); Anion Gap 9 mmol/L; Blood Urea Nitrogen 28 mg/dL (9-20); Carbon Dioxide 26 mmol/L (22-30); Chloride 101 mmol/L (98-107); Non-African American GFR(CKD) 65 (>60 ml/min/1.73 sqM); Potassium 4.4 mmol/L (3.5-5.1); Sodium 136 mmol/L (137-145)
[2024-11-13] MEDS: AZTREONAM 1 GM in SODIUM CHLORIDE 0.9% 50 ML IVPB STA (13:58)
== END ==
LOC: CATHCVL 11:15
PROVIDERS: ATTEND Internal Medicine Critical Care Medicine
DX: A49.8 Other bacterial infections of unspecified site (principal); K57.92 Diverticulitis of intestine, part unspecified, without perforation or abscess without bleeding; J45.51 Severe persistent asthma with (acute) exacerbation; F41.9 Anxiety disorder, unspecified; K51.90 Ulcerative colitis, unspecified, without complications; K21.9 Gastro-esophageal reflux disease without esophagitis; Z79.51 Long term (current) use of inhaled steroids; Z79.899 Other long term (current) drug therapy; Z87.891 Personal history of nicotine dependence; Z88.0 Allergy status to penicillin; Z88.8 Allergy status to other drugs, medicaments and biological substances; Z88.1 Allergy status to other antibiotic agents
CPT/HCPCS: 36410; 76937; 80051; 82565; 84520; 85025; C1751; J0457

== ENCOUNTER → 2024-12-24 | Outpatient (CLI) | payer MEDICARE ==
[2024-12-24 11:33] VITALS: TEMP 96.6
[2024-12-24] MEDS: SODIUM CHLORIDE 0.9% 500 ML 500 ML in EMPTY BAG 1 BAG IV PRN (11:34)
[2024-12-24] MEDS: HYDROCORTISONE SUCCINATE 100 MG/2 ML VIAL IVP NR (11:35)
[2024-12-24] MEDS: INFLIXIMAB-DYYB 400 MG in SODIUM CHLORIDE 0.9% 250 ML IV NR (11:45)
[2024-12-24 12:03] VITALS: RESP 16
[2024-12-24 12:49] VITALS: BP 124/80; PULSE 52
== END ==
LOC: PROCWHC3 11:04
PROVIDERS: ATTEND Internal Medicine Gastroenterology
DX: K51.90 Ulcerative colitis, unspecified, without complications (principal)
CPT/HCPCS: 96375; 96413; 96415; J1720; Q5103

== ENCOUNTER → 2025-02-18 | Outpatient (CLI) | payer MEDICARE ==
[2025-02-18 11:38] VITALS: TEMP 98
[2025-02-18] MEDS: HYDROCORTISONE SUCCINATE 100 MG/2 ML VIAL IVP NR (11:46)
[2025-02-18] MEDS: SODIUM CHLORIDE 0.9% 500 ML 500 ML in EMPTY BAG 1 BAG IV PRN (11:47)
[2025-02-18] MEDS: INFLIXIMAB-DYYB 400 MG in SODIUM CHLORIDE 0.9% 250 ML IV NR (11:58)
[2025-02-18 12:20] VITALS: RESP 16
[2025-02-18 13:05] VITALS: BP 121/78; PULSE 60
== END ==
LOC: PROCWHC3 11:20
PROVIDERS: ATTEND Internal Medicine Gastroenterology
DX: K51.90 Ulcerative colitis, unspecified, without complications (principal)
CPT/HCPCS: 96375; 96413; 96415; J1720; Q5103

== ENCOUNTER → 2025-04-15 | Outpatient (CLI) | payer MEDICARE ==
[2025-04-15 11:57] VITALS: RESP 16; TEMP 97.8
[2025-04-15] MEDS: SODIUM CHLORIDE 0.9% 500 ML 500 ML in EMPTY BAG 1 BAG IV PRN (11:59)
[2025-04-15] MEDS: HYDROCORTISONE SUCCINATE 100 MG/2 ML VIAL IV NR (12:01)
[2025-04-15 12:06] LABS: Basophils # (A) 0.06 10*3/uL (0.00-0.10); Basophils % (A) 0.9 %; Eosinophils # (A) 0.27 10*3/uL (0.04-0.35); Eosinophils % (A) 4.2 %; HCT 43.1 % (39.6-50.0); HGB 14.6 g/dL (13.0-17.0); Lymphocytes # (A) 2.12 10*3/uL (0.90-5.00); Lymphocytes % (A) 32.8 %; MCH 31.5 pg (27.0-32.0); MCHC 33.9 g/dL (32.0-37.0); MCV 93.1 fL (80.0-97.0); Mean Platelet Volume 11.3 fL (9.5-12.2); Monocytes # (A) 0.64 10*3/uL (0.20-1.00); Monocytes % (A) 9.9 %; Neutrophils # (A) 3.35 10*3/uL (1.80-7.70); Neutrophils % (A) 51.9 %; Platelet Count 214 10*3/uL (140-440); RBC 4.63 10*6/uL (4.40-5.60); RDW 11.9 % (11.5-14.5); WBC 6.46 10*3/uL (4.50-10.00)
[2025-04-15] MEDS: INFLIXIMAB-DYYB 400 MG in SODIUM CHLORIDE 0.9% 210 ML IV NR (12:09)
[2025-04-15 12:28] LABS: ALT 30 U/L (4-49); AST 32 U/L (17-59); African American GFR (CKD) 76 (>60 ml/min/1.73 sqM); Albumin 4.3 g/dL (3.5-5.0); Alkaline Phosphatase 38 U/L (38-126); Anion Gap 6 mmol/L; Blood Urea Nitrogen 22 mg/dL (9-20); Calcium 9.1 mg/dL (8.4-10.2); Carbon Dioxide 27 mmol/L (22-30); Chloride 108 mmol/L (98-107); Glucose 99 mg/dL (74-99); Non-African American GFR(CKD) 66 (>60 ml/min/1.73 sqM); Potassium 4.2 mmol/L (3.5-5.1); Sodium 141 mmol/L (137-145); Total Bilirubin 0.7 mg/dL (0.2-1.3); Total Protein 7.1 g/dL (6.3-8.2)
[2025-04-15 13:09] VITALS: BP 114/76; PULSE 60
== END ==
LOC: PROCWHC3 11:22
PROVIDERS: ATTEND Internal Medicine Gastroenterology
DX: K51.80 Other ulcerative colitis without complications (principal)
CPT/HCPCS: 80053; 85025; 96375; 96413; 96415; J1720; Q5103